=== PATIENT | male | born 1955 | race Caucasian/White ===

== ENCOUNTER → 2017-07-18 | Outpatient (CLI) | payer MEDICARE, MEDICAID ==
[~2017-07-18] MED LIST: CLONAZEPAM1 MG PO; DULCOLAX5 MG PO; LUVOX CR150 MG PO; MIRALAX POWDER255 GM PO; MIRTAZAPINE15 MG PO; MULTIPLE VITAMI1 CAP PO; PRILOSEC20 MG PO; RISPERDAL1 MG; VIT C; VIT E
== END | disposition home or self-care (01) ==
LOC: US 00:26
DX: Z12.5 Encounter for screening for malignant neoplasm of prostate (principal); R22.41 Localized swelling, mass and lump, right lower limb; I73.9 Peripheral vascular disease, unspecified; R73.09 Other abnormal glucose

== ENCOUNTER 2017-08-12 06:42 | Inpatient (IN) | payer MEDICARE, MEDICAID ==
[2017-08-12] VITALS (7 sets, daily range): BP systolic 108–170; BP diastolic 62–108
[~2017-08-12] VITALS: Ht 187.9 cm; Wt 76.2 kg
[2017-08-12 07:46] LABS: BASO % 0.2 % (0.0-1.0); EOS % 0.1 % (1.0-4.0); HEMATOCRIT 41.6 % (42.0-52.0); HEMOGLOBIN 13.6 g/dl (14.0-18.0); LYMPH # 0.9 10*3/uL (1.3-4.4); LYMPH % 7.8 % (27.0-41.0); MEAN CELL VOLUME 86.8 fl (80.0-94.0); MEAN CORPUSCULAR HGB 28.4 pg (27.0-31.0); MEAN CORPUSCULAR HGB CONC 32.7 g/dl (33.0-37.0); MEAN PLATELET VOLUME 10.5 fl (9.6-12.3); MONO # 0.3 10*3/uL (0.1-1.0); MONO % 2.4 % (3.0-9.0); NEUT # 9.8 10*3/uL (2.3-7.9); NEUT % 89.1 % (47.0-73.0); PLATELET COUNT AUTOMATED 177 10*3/uL (130-400); RED BLOOD COUNT 4.79 10*6/uL (4.50-5.90); RED CELL DISTRI WIDTH 13.2 % (0-14.5)
[2017-08-12 07:55] LABS: ACT PARTIAL THROMBO TIME 21.1 SECONDS (20.8-31.5); INTERNATIONAL NORM RATIO 0.9 (2.0-3.5)
--- NOTE | 2017-08-12 07:56 | NUR ---
PROVIDED PATIENT WITH URINAL AND ENCOURAGED TO PROVIDE URINE SPECIMEN. PATIENT STATES HE'S UNABLE TO URINATE AT THIS TIME.
[2017-08-12 08:03] LABS: ALBUMIN 4.6 gm/dl (3.1-4.5); ALKALINE PHOSPHATASE 66 U/L (45-117); BUN 10 mg/dl (7-24); CHLORIDE 102 mmol/L (98-107); LIPASE 66 U/L (73-393); MAGNESIUM 2.2 mg/dL (1.5-2.1); POTASSIUM 3.6 mmol/L (3.5-5.1); SGOT/AST 13 IU/L (3-35); SGPT/ALT 31 U/L (12-78); SODIUM 140 mmol/L (136-145); TOTAL PROTEIN 7.9 gm/dL (6.4-8.2)
[2017-08-12 08:10] LABS: TROPONIN I < 0.015 ng/ml (<0.045)
[2017-08-12 10:49] LABS: BILIRUBIN NEGATIVE (NEGATIVE); BLOOD NEGATIVE (NEGATIVE); CLARITY CLEAR (CLEAR); COLOR YELLOW (YELLOW); GLUCOSE NEGATIVE (NEGATIVE); KETONE 1+ (NEGATIVE); LEUKO ESTERASE NEGATIVE (NEGATIVE); NITRITE NEGATIVE (NEGATIVE); UROBILINOGEN 0.2 E.U./dl (0.2-1.0)
[2017-08-12] MEDS ORDERED: SILDENAFIL20 M1 PO (11:10)
[2017-08-12] MEDS ORDERED: ARIPIPRAZOLE30 MG PO (11:10)
[2017-08-12] MEDS ORDERED: HYDROXYZINE PAM25 M1 PO (11:10)
[2017-08-12] MEDS ORDERED: PANTOPRAZOLE SO40 MG PO (11:11)
[2017-08-12] MEDS ORDERED: OXYBUTYNIN CHLOR5 MG PO (11:11)
[2017-08-12] MEDS ORDERED: MIRTAZAPINE45 MG PO (11:12)
[2017-08-12] MEDS ORDERED: VITAMIN D400 I1 PO (11:13)
[2017-08-12] MEDS ORDERED: CLONAZEPAM1 MG PO (11:14)
[2017-08-12 11:17] LABS: MUCOUS 1+; WBC 0-2 wbc/hpf (0-5)
--- NOTE | 2017-08-12 11:42 | NUR ---
NG TUBE INSERTED RIGHT NARE. PT TOLERATED WELL. RETURN OF YELLOW-GREEN COLOR FLUID. INTERMITTENT SUCTION
--- NOTE | 2017-08-12 11:54 | NUR ---
REPORT CALLED TO RODRIGUEZ SALCIDO ON THE 5TH FLOOR. CONDITION STABLE. READY FOR TRANSPORT.
--- NOTE | 2017-08-12 12:24 | NUR ---
TRANSPORTED TO [facility] BED 2. CONDITION STABLE.
--- NOTE | 2017-08-12 14:58 | NUR ---
A 62, admitted to 5E, under the services of CANDICE Edmonds DO with a diagnosis of Small Bowel Obstruction. Chief complaint is Abdominal Pain with Nausea and Vomitting. Patient arrived via stretcher from ER. Monitor applied. Initial assessment completed. Vital signs taken and recorded. CANDICE EDMONDS DO notified of admission to the unit. Orders received. See assessment for past medical history, medications and allergies. Patient and/or family oriented to unit. [facility] 5-E visitation policy reviewed. Medication Reconciliation was reviewed with pharmacy. Clothing/patient valuable form completed. RODRIGUEZ WHEELER
--- NOTE | 2017-08-12 15:18 | NUR ---
ZOFRAN GIVEN PER REQUEST OF PATIENT FOR N/V. WILL MONITOR.
--- NOTE | 2017-08-12 16:00 | NUR ---
ZOFRAN EFFECTIVE. PATIENT HAS NO MORE C/O N/V. SUCTION PLACED ON INTERMITTENT SUCTION.
--- NOTE | 2017-08-12 16:00 | NUR ---
PER DR. ROSENBAUM, NG TUBE IS TO BE PLACED ON INTERMITTENT SUCTION.
--- NOTE | 2017-08-12 18:53 | NUR ---
PRN ATIVAN GIVEN PER PATIENT REQUEST FOR ANXIETY. WILL MONITOR.
[2017-08-13] VITALS: BP 107/73
--- NOTE | 2017-08-13 | NUR ---
awake, resting in bed. respirations easy. lungs diminished, clear. pulse ox 96% ra. ng tube maintained to right nare, connected to lis draining thick yellow mustard colored drainage. abd soft with hypoactive bowel sounds, claims loose stools. iv fluids infusing per order. hernandez patent. call light within reach. no voiced complaints
--- NOTE | 2017-08-13 02:15 | NUR ---
anxious. questioning when po meds will be given. explained to patient that he has a bowel obstruction and is npo. patient adament that he needs his psych meds. explained to patient that he can receive iv ativan , agreed and medicated per order. will monitor
--- NOTE | 2017-08-13 04:00 | NUR ---
meds effective. sleeping. respirations easy. ng maintained. iv fluids maintained
--- NOTE | 2017-08-13 06:00 | NUR ---
slept throughout night with no distress noted. respirations easy. ng tube maintained with 50 cc drainage this shift. iv fluids infusing per order. call light within reach. no voiced complaints
[2017-08-13 06:23] LABS: BASO % 0.3 % (0.0-1.0); EOS # 0.1 10*3/uL (0.0-0.4); EOS % 0.7 % (1.0-4.0); LYMPH # 1.8 10*3/uL (1.3-4.4); LYMPH % 25.1 % (27.0-41.0); MEAN CELL VOLUME 87.4 fl (80.0-94.0); MEAN CORPUSCULAR HGB 28.8 pg (27.0-31.0); MEAN CORPUSCULAR HGB CONC 32.9 g/dl (33.0-37.0); MEAN PLATELET VOLUME 9.9 fl (9.6-12.3); MONO # 0.5 10*3/uL (0.1-1.0); MONO % 6.8 % (3.0-9.0); NEUT # 4.9 10*3/uL (2.3-7.9); NEUT % 66.7 % (47.0-73.0); PLATELET COUNT AUTOMATED 145 10*3/uL (130-400); RED BLOOD COUNT 3.89 10*6/uL (4.50-5.90); RED CELL DISTRI WIDTH 13.4 % (0-14.5); WHITE BLOOD COUNT 7.3 10*3/uL (4.8-10.8)
[2017-08-13 06:25] LABS: HEMOGLOBIN 11.2 g/dl (14.0-18.0)
[2017-08-13 06:51] LABS: ALBUMIN 3.1 gm/dl (3.1-4.5); ALKALINE PHOSPHATASE 46 U/L (45-117); BUN 9 mg/dl (7-24); CHLORIDE 109 mmol/L (98-107); CHOLESTEROL 116 mg/dL (<200); CREATININE 0.98 mg/dL (0.70-1.30); FREE T4 0.84 ng/dl (0.76-1.46); HDL CHOLESTEROL 49 mg/dl (40-60); LDL CHOLESTEROL 54 mg/dL (9-159); MAGNESIUM 1.7 mg/dL (1.5-2.1); PHOSPHOROUS 2.2 mg/dL (2.5-4.9); POTASSIUM 3.3 mmol/L (3.5-5.1); SGOT/AST 10 IU/L (3-35); SGPT/ALT 19 U/L (12-78); SODIUM 144 mmol/L (136-145); TOTAL PROTEIN 5.4 gm/dL (6.4-8.2); TRIGLYCERIDES 64 mg/dl (<150); VLDL CHOLESTEROL 13 mg/dL (6-40)
[2017-08-13 07:12] LABS: VITAMIN D, 25-HYDROXY 40.7 ng/mL (30-100)
[2017-08-13 08:00] VITALS: BP 108/65
--- NOTE | 2017-08-13 08:15 | NUR ---
Vasc Tech in to talk to patient. Patient states lives at HOME ALONE with . There are 0 steps in the home. Physician: DR LOPEZ Pharmacy: [facility] health services: NONE Patient's level of ADLs: INDEPENDENT Patient has working utilities: YES DME: NONE Follow-up physician's appointment after d/c: WILL BE MADE PRIOR TO DC Does patient want to access PORTAL?: Discharge plan HOME. JOSE LAWRENCE
--- NOTE | 2017-08-13 10:35 | NUR ---
ATIVAN GIVEN FOR C/O ANXIETY. WILL MONITOR.
[2017-08-13 12:00] VITALS: BP 109/73; BP 126/47
[2017-08-13 16:00] VITALS: BP 145/90
--- NOTE | 2017-08-13 17:25 | NUR ---
KLONOPIN GIVEN FOR C/O ANXIETY. WILL MONITOR.
--- NOTE | 2017-08-13 18:30 | NUR ---
KLONOPIN EFFECTIVE PER PT.
[2017-08-13 20:00] VITALS: BP 109/68
[2017-08-14] VITALS: BP 112/73
--- NOTE | 2017-08-14 01:56 | NUR ---
RESTING IN BED WITH EYES CLOSED RESPS EASY AND NONLABORED WITH NO S/S OF DISTRESS CALL LIGHT WITH IN REACH
[2017-08-14 06:31] LABS: ALBUMIN 3.1 gm/dl (3.1-4.5); ALKALINE PHOSPHATASE 50 U/L (45-117); BUN 7 mg/dl (7-24); CHLORIDE 109 mmol/L (98-107); CREATININE 0.92 mg/dL (0.70-1.30); PHOSPHOROUS 2.5 mg/dL (2.5-4.9); POTASSIUM 3.3 mmol/L (3.5-5.1); SGOT/AST 14 IU/L (3-35); SGPT/ALT 21 U/L (12-78); SODIUM 144 mmol/L (136-145); TOTAL PROTEIN 5.7 gm/dL (6.4-8.2)
[2017-08-14 06:37] LABS: BASO % 0.3 % (0.0-1.0); EOS # 0.1 10*3/uL (0.0-0.4); EOS % 1.3 % (1.0-4.0); HEMATOCRIT 34.3 % (42.0-52.0); HEMOGLOBIN 11.1 g/dl (14.0-18.0); LYMPH # 1.8 10*3/uL (1.3-4.4); LYMPH % 28.9 % (27.0-41.0); MEAN CELL VOLUME 89.3 fl (80.0-94.0); MEAN CORPUSCULAR HGB 28.9 pg (27.0-31.0); MEAN CORPUSCULAR HGB CONC 32.4 g/dl (33.0-37.0); MEAN PLATELET VOLUME 10.4 fl (9.6-12.3); MONO # 0.5 10*3/uL (0.1-1.0); MONO % 7.1 % (3.0-9.0); NEUT % 62.2 % (47.0-73.0); PLATELET COUNT AUTOMATED 135 10*3/uL (130-400); RED BLOOD COUNT 3.84 10*6/uL (4.50-5.90); RED CELL DISTRI WIDTH 13.2 % (0-14.5); WHITE BLOOD COUNT 6.4 10*3/uL (4.8-10.8)
[2017-08-14 08:00] VITALS: BP 108/71
--- NOTE | 2017-08-14 08:00 | NUR ---
PT RESTING IN BED, PT DENIES ANY COMPLAINTS AT THIS TIME. RESPIRATIONS EASY & REGULAR, PT DENIES SOB. ABDOMEN SOFT/NON-DISTENDED, HYPO BSX4 QUADS, PT DENIES ANY ABDOMINAL PAIN, NAUSEA, OR TENDERNESS. PIPER PATENT. IVF INFUSING PER ORDER. PT DENIES NEEDS AT THIS TIME. CALL LIGHT WITHIN REACH.
--- NOTE | 2017-08-14 08:42 | NUR ---
PT REQUESTING HIS LUVOX CR, SPOKE WITH PHARMACY, THEY STATE WE DON'T CARRY THE CR FORM, STATE THEY COULD ORDER LUVOX 50MG TID. UPDATED GAURANG PADGETT.
--- NOTE | 2017-08-14 09:49 | NUR ---
PIPER CATHETER D/C PER ORDER AT THIS TIME. MEDICATED WITH VISTARIL PER PT REQUEST FOR ANXIETY. MEDICATION EDUCATION PROVIDED TO PT REGARDING PROPER DOSING AND SCHEDULE FOR VISTARIL. PT STATES IT IS NEEDED, REINSTRUCTED THAT YES IT IS AN NEEDED MEDICATION, BUT IT IS 25MG EVERY 6 HOURS NEEDED, NOT TO TAKE HE WISHES.
--- NOTE | 2017-08-14 10:30 | NUR ---
PT STATES HE TOLERATED HIS REGULAR DIET BREAKFAST, DENIES AND N/V AND ABD DISCOMFORT.
[2017-08-14 12:00] VITALS: BP 113/64
--- NOTE | 2017-08-14 14:56 | NUR ---
Discharge instructions reviewed with patient/family. Patient receptive and verbalizes understanding. Follow-up care arranged. Written instructions given to patient/family. IV site and telemtry monitor removed. Pt trsnported to lobby via wheelchair. PASQUALE BATES
== END 2017-08-14 14:56 | disposition home or self-care (01) | DRG 389 ==
LOC: ED 06:42 → 5E 10:48 → EDHOLD 10:48 → 5E 10:54
PROVIDERS: Emergency Medicine; Registered Nurse; ADMIT Internal Medicine
PROC: 0D9670Z Drainage of Stomach with Drainage Device, Via Natural or Artificial Opening (ICD-10-PCS; principal; 2017-08-12)
DX: K56.609 Unspecified intestinal obstruction, unspecified as to partial versus complete obstruction (principal); R65.10 Systemic inflammatory response syndrome (SIRS) of non-infectious origin without acute organ dysfunction; E44.0 Moderate protein-calorie malnutrition; E87.8 Other disorders of electrolyte and fluid balance, not elsewhere classified; E88.09 Other disorders of plasma-protein metabolism, not elsewhere classified; F20.9 Schizophrenia, unspecified; K56.7 Ileus, unspecified; R74.8 Abnormal levels of other serum enzymes; F32.9 Major depressive disorder, single episode, unspecified; E55.9 Vitamin D deficiency, unspecified; E87.6 Hypokalemia; Z90.49 Acquired absence of other specified parts of digestive tract; Z79.899 Other long term (current) drug therapy; Z88.6 Allergy status to analgesic agent; Z91.040 Latex allergy status; Z68.21 Body mass index [BMI] 21.0-21.9, adult

== ENCOUNTER 2019-08-08 01:54 | Inpatient (IN) | payer MEDICARE, MEDICAID ==
[~2019-08-08] VITALS: Ht 187.9 cm; Wt 71.4 kg
--- NOTE | ~2019-08-08 | PR ---
[place], [place] PROGRESS NOTE NAME: [id number] UN[facility] #: [id number] ROOM: 317 DOCTOR: JOSE LANGE MD BIRTHDATE: [birth year] DOS: 08/17/2019 CHIEF COMPLAINT: "I am a complicated case. I am a chronic paranoid, schiz with OCD. I have done well with Remeron 45 mg at bedtime before." SUMMARY OF THE VISIT: The patient was interviewed and he continued to focus on needing his Remeron back. He stated that he has always taken the Remeron 45 mg worked the best and he has taken it well on the Luvox CR. He reports his anxiety is under much better control with the addition of the Klonopin, but his depression is still there and perhaps worsening. We talked at length about the pros and cons of reinitiating Remeron therapy and he nodded in approval that he wanted to go forward with it. I did tell him we would start him at 22.5 mg at bedtime and adjust accordingly and again he agreed. MENTAL STATUS: He is alert and oriented. Mood does seem to be depressed. He is rather flat and blunted in matter of fact. There are no outward signs of anxiety. There is no hypomania or jenae. There are no gross psychotic symptoms. Memory for the most part is intact. PLAN: I will go ahead and restart Remeron 22.5 mg at bedtime. We will engage in individual and gamino milieu activity, returning to the least restrictive environment when psychiatrically stable. JOSE LANGE MD CM:PNTRANS [id number] JOSE LANGE MD 08/17/19 1330 interface
--- NOTE | ~2019-08-08 | PR ---
[place], [place] PROGRESS NOTE NAME: LIZETTE CARMICHAEL UNIT #: [id number] ROOM: 317 DOCTOR: JOSE LANGE MD BIRTHDATE: [birth year] DOS: 08/12/2019 INTERVAL NOTE CHIEF COMPLAINT: "I am just worried where I will follow when I get out of here. I have not felt this good in a long time." SUMMARY OF THE VISIT: The patient was interviewed as he was sitting at the end of the dining area. He engaged readily in conversation, reporting that he has not felt this good in some time. He was concerned where he would follow up, as he is afraid that wherever he would follow will change his medicines and states that this current regimen is working well. I did suggest as an option that he could followup in my office in [place] and he nodded in approval. MENTAL STATUS: He is alert and oriented. Mood does seem to be more euthymic. Affect is more appropriate. There is no jenae, hypomania, or psychosis. There is no sedation, somnolence, or extrapyramidal symptoms. Memory for the most part is intact. PLAN: I will go ahead and check a clonazepam level on 08/14/2019 in the a.m. to ensure that it is therapeutic. Continue to engage in individual and gamino milieu activity, returning to the least restrictive environment when psychiatrically stable. JOSE LANGE MD CM:PNTRANS [id number] JOSE LANGE MD 08/13/19 0115 interface
--- NOTE | ~2019-08-08 | PR ---
[place], [place] PROGRESS NOTE NAME[id number] #: [id number] ROOM: 317 DOCTOR: RON GARCIA CNP BIRTHDATE: [birth year] DOS: 08/09/2019 CHIEF COMPLAINT: "I am worried that Klonopin will cause me to have Alzheimer's." SUMMARY OF THE VISIT: The patient was interviewed as he sat in the dining room. He did engage readily in conversation with me. The patient continues to report that he is having hallucinations, colors appear prayed and he sees Js, Cs and crosses. He denies any auditory hallucinations. He reports that he feels as if he could have a panic attack. Vistaril 50 mg has worked for anxiety in the past. He reports that he was also taking Klonopin 2 mg and it was effective at one time. Staff reports that the patient only slept 2-1/2 hours last night, seems to be perseverating on his medications; however, he has been compliant with taking meds. His appetite has been good. MENTAL STATUS EXAMINATION: The patient is alert and oriented to person, place and time. He was pleasant and cooperative with me. No jenae or hypomania noted. No delusions noted; however, there is some paranoia noted this morning. No auditory or visual hallucinations noted at this time. The patient's mood is anxious. His affect is congruent with mood. PLAN: The patient's TSH is elevated. We will have the hospitalist follow up with this. We will increase the patient's Zyprexa to 10 mg daily to help alleviate the hallucinations, also start the patient on Vistaril 50 mg every 8 hours for anxiety, continue patient's other medications as prescribed. He appears to be tolerating them without any side effects. Continue to encourage the patient to engage in individual and gamino milieu activity. Continue fall and safety precautions. Plan is to return the patient to the least restrictive environment once he is considered psychiatrically stable. Ron Garcia CNP CM:PNTRANS [id number] RON GARCIA CNP 09/07/19 0845 interface
--- NOTE | ~2019-08-08 | PR ---
[place], [place] PROGRESS NOTE NAME: LIZETTE CARMICHAEL UNIT #: [id number] ROOM: 317 DOCTOR: JOSE LANGE MD BIRTHDATE: [birth year] DOS: 08/19/2019 INTERVAL NOTE CHIEF COMPLAINT: "I feel better, will you be able to be my doctor when I get out of here." SUMMARY OF THE VISIT: The patient was interviewed as he was sitting in the dining area. He reported that overall he is feeling better and that the depression and anxiety are both lifting and he feels that the obsessive thoughts also are lifting. We discussed at length the reason for increasing his Luvox CR to 3 a day and he nodded in approval. He also convincingly denied any medication side effects. MENTAL STATUS: He remains alert and oriented with time gaps. Mood does seem to be strongly trending towards euthymia. Affect is much more appropriate. There is no jenae, hypomania, or psychosis. Memory has some gaps. PLAN: I will maintain his current psychotropic regimen to allow him more time to adjust. I will, however, check a hemoglobin A1c and a lipid panel given his higher dose of olanzapine. We will monitor and support and engage in individual and gamino milieu, returning then to the least restrictive environment when psychiatrically stable. JOSE LANGE MD CM:PNTRANS [phone] JOSE LANGE MD 08/20/19 0023 interface
--- NOTE | ~2019-08-08 | PR ---
[place], [place] PROGRESS NOTE NAME: LIZETTE CARMICHAEL UNIT #: [id number] ROOM: 317 DOCTOR: JOSE LANGE MD BIRTHDATE: [birth year] DOS: 08/13/2019 INTERVAL NOTE CHIEF COMPLAINT: "I think I need something more for my depression." SUMMARY OF THE VISIT: The patient was interviewed first in the back of the dining room, where he reported that his anxiety level is under control. He did request that I start him on some Remeron, but I discussed with him that this may not be advisable as mixing the Remeron with the Luvox could have the potential of causing serotonin syndrome. Instead, I offered to check a Luvox level in the morning to see if we need to adjust it. Later, he asked to talk to me in private, at which time, he discussed how on April 30 of this past year, his anxiety increased when he frequented a pornographic theater. I did discuss with him the possibility of seeing his counselor more frequently to deal with some of the aftermath of this incident and he agreed to see the counselor weekly. MENTAL STATUS: He is alert and oriented. Mood does seem to be more euthymic and he is less anxious. There is less obsessiveness, but it is still present. He is tolerating the medication well without sedation, somnolence, extrapyramidal symptoms, or tardive dyskinesia. PLAN: Along with checking a clonazepam level in the a.m. tomorrow, I will add a fluvoxamine level too to ensure that both are therapeutic. Engage in individual and gamino milieu activity, returning to the least restrictive environment when psychiatrically stable. JOSE LANGE MD CM:PNTRANS [phone] JOSE LANGE MD 08/13/192105 interface
--- NOTE | ~2019-08-08 | PR ---
[place], [place] PROGRESS NOTE NAME: LIZETTE CARMICHAEL UNIT #: [id number] ROOM: 317 DOCTOR: JOSE LANGE MD BIRTHDATE: [birth year] DOS: 08/10/2019 CHIEF COMPLAINT: "My anxiety triggers my depression and my depression triggers the voices. It is all a vicious cycle." SUMMARY OF THE VISIT: The patient was interviewed as he was sitting at the edge of the dining area, eating his breakfast. He engaged readily in conversation. He reports that in the past, Klonopin was effective, but it gradually lost effectiveness over time. He feels that the Luvox is effective and did not want that dose changed. He also feels like the Zyprexa has helped some, but is open to allowing me to adjust medication. MENTAL STATUS: He is alert and oriented. Mood does seem to be depressed with anxious overtones and there is of OCD as he reiterates things over and over, trying to pinpoint the exact wording that he wants. There is no hypomania or jenae. There is still the presence of some psychosis. Memory is intact. PLAN: I will increase his Zyprexa to 5 mg in the morning and 10 mg at night. We will also increasing the Klonopin to 1 mg twice a day and 2 mg at bedtime in an effort to control the psychosis, anxiety, the depression and the OCD. JOSE LANGE MD CM:PNTRANS 4 1 JOSE LANGE MD 08/10/1952 interface
--- NOTE | ~2019-08-08 | DS ---
[place], [place] DISCHARGE SUMMARY NAME: LIZETTE CARMICHAEL [facility] #: [id number] UNIT #: [id number] ROOM: 317 DOCTOR: JOSE LANGE MD BIRTHDATE: [birth year] DOS: 08/24/2019 DISCHARGE SUMMARY CHIEF COMPLAINT: "I was at the crisis unit and I told them I was seeing all these bright colors, but they discharged me in anyway." HISTORY OF PRESENT ILLNESS: This is a 64-year-old white male with a lengthy history of paranoid schizophrenia as well as anxiety, OCD and depression. The patient presented to the Emergency Room at [facility], having a panic attack. He received Ativan and it was effective; however, a few hours later, he began to feel anxious and suicidal and reported that he wanted to jump off a bridge. He reports that the suicidal ideations happen whenever he becomes anxious and he is fearful that will trigger psychosis and he will decompensate greatly. The patient has endorsed that he has had sleep issues as well as appetite issues and he tends to ruminate on things to the point where he will work himself up into a suicidal crisis. He is admitted now to the [facility] to rule out organic factors, to stabilize on medication, to engage in individual and gamino milieu activity, and then to determine the least restrictive environment to which he could return. SUMMARY OF HOSPITAL COURSE: The patient was admitted to the unit where his psychotropic regimen was continued for the most part except his Abilify was discontinued. During the course of his stay, a Fluvoxamine level was obtained and it was therapeutic, but very lowly so, despite being on 150 mg of the Luvox CR twice daily. Because of the low therapeutic level, his dose was increased to Luvox CR 150 mg t.i.d. with good results. Additionally, the patient stated that in the past, he always took Remeron at the dose of 45 mg a day to augment the effectiveness of the antidepressant regimen. I did already discontinue his Paxil, so I did restart him back on the Remeron and very rapidly moved him from 15 to 30 and then ultimately 45 mg a day. I did add Klonopin 2 mg at bedtime in an effort to aid sleep and also decrease some of the obsessive compulsive ruminations that he engaged in. He improved dramatically with this combination of medications and voiced a willingness and a readiness to return home. He did request that he followup in my office as he states that he feels that this combination of medications has him feeling the best that he has for some time. The patient was discharged then on 08/24/2019 to return home. MENTAL STATUS AT DISCHARGE: He is alert and oriented to person, place and time. Mood does seem to be euthymic. Affect appropriate. There is no jenae, hypomania or gross psychosis noted. Short term memory, intermediate memory and long-term memory are intact. FINAL DIAGNOSES AT THE TIME OF DISCHARGE: Schizoaffective disorder, obsessive compulsive disorder. DISPOSITION: All of his prescriptions have been e-scribed to [facility] except for Luvox CR and the Klonopin. These were printed, signed, and sent with him. He will have followup with Clarita Soto in my office in [place]. At the time of discharge, he was medically and psychiatrically stable. [place], [place] DISCHARGE SUMMARY [facility]: [id number] #: [id number] ROOM: [facility] DOCTOR: JOSE LANGE MD BIRTHDATE: [birth year] JOSE LANGE MD CM:RAMON [id number] JOSE LANGE MD 08/24/19 1825 interface
--- NOTE | ~2019-08-08 | PR ---
[place], [place] PROGRESS NOTE NAME: LIZETTE CARMICHAEL UNIT #: [id number] ROOM: 317 DOCTOR: JOSE LANGE MD BIRTHDATE: [birth year] DOS: 08/11/2019 INTERVAL NOTE CHIEF COMPLAINT: "I feel a little better, I guess I do need the Klonopin." SUMMARY OF THE VISIT: The patient was interviewed as he was sitting at the dining table with other peers. He was much more conversant and pleasant than he was yesterday, much less perseverative. He also seemed much less anxious. He focused on using the Klonopin and wanted some reassurance that this was the right thing to do. I discussed at length what the Klonopin can do pharmacologically in curbing his anxiety, OCD and stabilizing his mood and he nodded in approval. He noted no side effects from the increase in the Klonopin. MENTAL STATUS: He is alert and oriented to person, place and time. Mood does seem to be more euthymic. Affect is more appropriate. There is no jenae, hypomania or psychosis noted. Memory is fairly intact. PLAN: I will go ahead and increase his hydroxyzine to 50 mg q.i.d. in an effort to augment the Klonopin. We will engage in individual and gamino milieu activity, returning to the least restrictive environment when psychiatrically stable. JOSE LANGE MD CM:PNTRANS [id number] JOSE LANGE MD 08/11/19 1132 interface
--- NOTE | ~2019-08-08 | PR ---
[place], [place] PROGRESS NOTE NAME: LIZETTE CARMICHAEL UNIT #: [id number] ROOM: 317 DOCTOR: JOSE LANGE MD BIRTHDATE: [birth year] DOS: 08/18/2019 CHIEF COMPLAINT: "I guess I have to be on the Klonopin. That Remeron seems to help, but I usually need more." SUMMARY OF THE VISIT: The patient was interviewed as he was once again sitting in the dining room, waiting for breakfast. He engaged readily in conversation and did report that he was feeling slightly better now that the Remeron was restarted. He still does tend to ruminate a lot. I did finally receive back the fluvoxamine and clonazepam levels. Clonazepam is just mildly therapeutic at 21 with the range being 20-70. Of note, the fluvoxamine level is relatively low at 95 with the range for most individuals being 50-900. My sense is he is either not absorbing the Luvox CR or he is rapidly metabolizing it. Doing a GeneSight test later when he returns back into the community would be worthwhile at this point. MENTAL STATUS: He is alert and oriented. Mood does seem to be still depressed, but improving. He is still ruminative and repetitive, but he redirects more readily. There is no hypomania, jenae or psychosis. Short term, intermediate, and long-term memory are intact. PLAN: I will go ahead and increase his Remeron to 30 mg at bedtime with a target dose of 45. I will contact the pharmacy and see if we can safely increase his Luvox CR to 150 mg 3 times a day given the fact that his fluvoxamine level is relatively low at 95. I will maintain his Klonopin at its current dosing, although we do have room to adjust this as needed, but we will keep it at the current dose given benefits without side effects. We will engage in individual and gamino milieu activity with the ultimate plan to return to the least restrictive environment when psychiatrically stable. JOSE LANGE MD CM:PNTRANS 9 26 JOSE LANGE MD 08/18/192025 interface
--- NOTE | ~2019-08-08 | PR ---
[place], [place] PROGRESS NOTE NAME: LIZETTE CARMICHAEL UNIT #: [id number] ROOM: 317 DOCTOR: JOSE LANGE MD BIRTHDATE: [birth year] DOS: 08/20/2019 INTERVAL NOTE CHIEF COMPLAINT: "I am having some disturbing deeply orthodox thoughts, but I am okay." SUMMARY OF THE VISIT: The patient was interviewed in the dining room where he reported to me that he was having disturbing orthodox thoughts and has become more religiously preoccupied. Additionally, nurses report that he is becoming more sexually preoccupied and has been masturbating in his room more frequently. MENTAL STATUS: He is alert and oriented with some time gaps. Mood does seem to be depressed, despondent and preoccupied. There are no symptoms of hypomania. He is delusional. Memory has gaps. PLAN: I will increase his Remeron to 45 mg at bedtime. Per his request as he states that this does work the best for him given his preoccupation and his behaviors, I will increase his Zyprexa from 5 mg in the morning and 15 mg at night to stabilize his mood and decrease his preoccupation. We will engage in individual and gamino milieu activity, returning to the least restrictive environment when psychiatrically stable. JOSE LANGE MD CM:PNTRANS [phone] [id number] JOSE LANGE MD 08/20/192119 interface
--- NOTE | ~2019-08-08 | PR ---
[place], [place] PROGRESS NOTE NAME: LIZETTE CARMICHAEL UNIT #: [id number] ROOM: 317 DOCTOR: JOSE LANGE MD BIRTHDATE: [birth year] DOS: 08/21/2019 CHIEF COMPLAINT: "Doctor, can I have some Viagra." SUMMARY OF THE VISIT: The patient was interviewed in the dining area where he requested I start him on Viagra. I told him that this was inappropriate for psych unit and he did not need this at this time. He asked if it was okay if his family doctor prescribed it. I said yes that would be appropriate if his family doctor thought that the side effects were not significantly impact upon him, but that it does have some significant side effects that warrant medical supervision. Otherwise, the patient does report feeling better and outwardly he does seem to be less depressed and less anxious. On a negative note, however, staff has noted that he has now gone from masturbating in his bathroom or bedroom to at times in public places. We will continue to monitor this and redirect and support and monitor. MENTAL STATUS: He is alert and oriented. Mood does seem to be trending towards euthymia. Affect is much more appropriate. There is no jenae or hypomania. There is no gross psychosis. PLAN: I will add Rozerem p.r.n. for sleep and also check an ammonia level. We will engage in individual and gamino milieu activity, returning to the least restrictive environment when psychiatrically stable. JOSE LANGE MD CM:PNTRANS 0 50 JOSE LANGE MD 08/21/19 1950 interface
--- NOTE | ~2019-08-08 | WRIGHTHP ---
[place], [place] PATIENT HISTORY AND PHYSICAL EXAM NAME: LIZETTE CARMICHAEL [facility] #: [id number] UNIT #: [id number] ROOM: 317 DOCTOR: RON GARCIA CNP BIRTHDATE: [birth year] DOS: 08/08/2019 INITIAL PSYCHIATRIC EVALUATION CHIEF COMPLAINT: "I was at the Crisis Unit and I told them I was seeing all these bright colors, but they discharged me anyway." HISTORY OF PRESENT ILLNESS: This is a 64-year-old male with a history of anxiety and paranoid schizophrenia who presented to the Emergency Department yesterday having a panic attack. The patient received Ativan in the Emergency Room and it was effective. However, a few hours later, he began to feel anxious and suicidal. The patient reported that he wanted to jump off the bridge. He reports that he has suicidal ideations whenever he becomes very anxious and has panic attacks. The patient reports that the bright lights continue to make the visual hallucinations worse. He does report that he has ringing in his ears; however, he is unable to hear any specific voices. He also reports that he is able to see a J and a cross. The patient was admitted to the Behavioral Health Unit here at [facility]. Once he was considered medically stable in order, we will now continue to rule out any further organic factors and attempt to re-stabilize him on medication. He will be encouraged to engage in individual and gamino milieu activity and the plan is to return him to the least restrictive environment once he is considered psychiatrically stable. PAST MEDICAL HISTORY: Remarkable for depression, elevated lipase, hyperalbuminemia, hyperchloremia, hypermagnesemia, hypocalcemia, hypokalemia, hypophosphatemia, leukocytosis, moderate protein-calorie malnutrition, paranoid schizophrenia, systemic inflammatory response syndrome, small-bowel obstruction, vitamin D deficiency. He had a history of cholecystectomy and has had a history of a PEG tube placement, also has a history of anxiety. SOCIAL HISTORY: The patient denies any alcohol, tobacco or illicit drug use. STRENGTHS: He is ambulatory and has good verbal skills. WEAKNESSES: Long-term Behavioral Health and poor coping skills. MENTAL STATUS: The patient is alert and oriented to person, place and time. He was pleasant and cooperative with me. No jenae or hypomania noted. No delusions or paranoia noted at this time. No auditory or visual hallucinations noted at this time. The patient's mood was calm. His affect congruent with mood. No agitation, irritability or aggression noted at this time. The patient's judgment and insight are fair. His memory appears to be intact for the most part. The patient does deny any current suicidal or homicidal ideations. DIAGNOSES: Major depression, recurrent, severe and paranoid schizophrenia. PLAN: The patient's TSH is elevated. We will have the hospitalist follow up with this. We will start the patient on Zyprexa 5 mg daily to combat auditory and visual hallucinations. We will start the patient on Klonopin 0.5 mg twice a [place], [place] PATIENT HISTORY AND PHYSICAL EXAM NAME: LIZETTE CARMICHAEL UNIT #: [id number] ROOM: [facility] DOCTOR: RON GARCIA CNP BIRTHDATE: [birth year] day to combat anxiety. Continue the patient's Luvox 150 mg b.i.d. We will continue to encourage the patient to engage in individual and gamino milieu activity. Continue fall and safety precautions. Plan is to return the patient to the least restrictive environment once he is considered psychiatrically stable. Ron Garcia CNP CM:HISPHYS:PATIENT HISTORY AND PHYSICAL EXAMINATION [id number] RON GARCIA CNP 08/08/19 1104 interface
--- NOTE | ~2019-08-08 | PR ---
[place], [place] PROGRESS NOTE NAME: LIZETTE CARMICHAEL UNIT #: [id number] ROOM: 317 DOCTOR: JOSE LANGE MD BIRTHDATE: [birth year] DOS: 08/14/2019 CHIEF COMPLAINT: "I feel overmedicated, yet I am afraid to have a panic attack. I haven't had a panic attack in 3 days now." SUMMARY OF THE VISIT: The patient was interviewed as he was sitting at the edge of the dining area, having eaten his breakfast. He reported that he was feeling overmedicated, but he could not put into words what he felt. He denied sedation, somnolence, dizziness or any other side effects, just stating he feels somewhat overmedicated. He does feel that the current medicine regimen is helpful and that his overall anxiety level is less and he has not had a panic attack now for 3 days. Sleep and appetite are normalizing. MENTAL STATUS: He is alert and oriented. Mood does still seem to be somewhat depressed with anxious overtones. There is no jenae or hypomania and I do not see the presence of psychosis. Memory for the most part is intact. PLAN: I will discontinue the hydroxyzine altogether as the Klonopin is the more important of the agent as it will help with anxiety, OCD and mood stabilization. Both a Luvox and a Klonopin level were drawn and I am awaiting results to determine if any adjustment in his medication is needed. Meanwhile, we will engage in individual and gamino milieu activity, returning to the least restrictive environment when psychiatrically stable. JOSE LANGE MD CM:PNTRANS [id number] JOSE LANGE MD 08/14/19 1449 interface
[~2019-08-08 01:54] MED LIST changes: +ARIPIPRAZOLE30 MG PO; +HYDROXYZINE PAM25 M1 PO; +MIRTAZAPINE45 MG PO; +MULTIPLE VITAM1 EAC2 PO; -MULTIPLE VITAMI1 CAP PO; +OXYBUTYNIN5 MG PO; +PANTOPRAZOLE SO40 MG PO; +SILDENAFIL20 M1 PO; +VITAMIN D400 I1 PO
[2019-08-08] MEDS ORDERED: FLUVOXAMINE MA150 M1 PO (04:27)
[2019-08-08] MEDS ORDERED: ZYPREXA15 M1 PO (04:27)
[2019-08-08] MEDS ORDERED: PAXIL20 M1 PO (04:28)
[2019-08-08] MEDS ORDERED: PROPRANOLOL HCL10 MG PO (04:30)
--- NOTE | 2019-08-08 04:45 | NUR ---
LIZETTE CARMICHAEL a 64 year old M admitted via wheel chair from the ADMITTING as a emergency 72 hr. hold admission. Arrived on unit at 0445. ALLERGIES: RISPERDAL. Vital signs are: 98.3-72-20 102/68. The client signed the following forms with stated understanding: Authorization For The Release of Medical Information, Clothing List , Consent and Release Forms/Receipt of Rights, Acknowledgement of Advance Directive Information, Behavioral Health Consent Form, and Informed Consent of Medications. Admitted under the services of JOSE Crespo MD. A search was conducted and hazardous articles were removed. Client was oriented to the unit. PATIENT DID NOT SIGN VOLUNTARY ADMISSION AND HOSPITALIZATION. PATIENT WITH NO WOUNDS ON ADMISSION. PATIENT CAME IN EMERGENCY BROUGHT FROM HOME AFTER LEAVING [facility] CRISIS [facility]IT RAEANN CROSS
--- NOTE | 2019-08-08 04:47 | NUR ---
DR ROSENBAUM NOTIFIED ABOUT ADMISSION. PATIENT UNDER DR URENA FOR MEDICAL MANAGEMENT
--- NOTE | 2019-08-08 04:49 | NUR ---
MESSAGE LEFT FOR AIDEE EPPERSON REGARDING ADMISSION
[2019-08-08 05:00] VITALS: BP 102/68
--- NOTE | 2019-08-08 05:00 | NUR ---
DR ROSENBAUM ON UNIT TO SEE PATIENT
[2019-08-08 07:14] VITALS: BP 102/68
[2019-08-08 08:23] LABS: THYROID STIM HORMONE (HS) 4.84 uIU/ml (0.358-4.75)
[2019-08-08 08:48] LABS: VITAMIN D, 25-HYDROXY 36.7 ng/mL (30-100)
[2019-08-08 08:52] VITALS: BP 102/68
--- NOTE | 2019-08-08 09:00 | NUR ---
INDERAL NOT AVAILABLE FROM PHARMACY AT THIS TIME.
--- NOTE | 2019-08-08 11:59 | NUR ---
Patient resting quietly with no c/o discomfort. Respirations easy and regular. Vital signs stable. No overt distress. GIVENS,SASHA
--- NOTE | 2019-08-08 12:05 | NUR ---
AM GROUP PT ATTENDED GROUP BUT OBSERVED. PT IN AND OUT OF ACTIVITY'S. THIS STAFF DID ACTIVITY ASSESSMENT ON PT AND AT THE END PT LISTED ACTIVITY'S OF INTEREST BUT ALSO STATES "I ALSO WATCH PORN AND MASTURBATE" PT DID NOT MENTION ANYMORE INAPPROPRIATE STATEMENTS AT THIS TIME. PT WILL CONTINUE TO BE ENCOURAGED TO ATTEND AN DPARTICIPATE IN GROUP TO BEST OF PT ABILITY.
--- NOTE | 2019-08-08 12:47 | NUR ---
psychosocial hx completed.
--- NOTE | 2019-08-08 13:19 | NUR ---
P: VISUAL HALLUCINATIONS- STATING WITH THE GLARE ON THE WINDOWS FROM THE LIGHTS, HE CAN SEE OBJECTS ON THE WINDOWS. I: 1:1 WITH PT FOR THERAPEUTIC COMMUNICATION, REORIENT PT TO REALITY, ENCOURAGE MEDICATION COMPLIANCE, MONITOR BEHAVIORS WITH Q15 MINUTE SAFETY CHECKS R: PT STATES HE STILL SEES OBJECTS, MEDICATION COMPLIANT, PT STATED HE KNOWS THERE IS NOTHING ON THE WINDOWS AND IT IS JUST SOMETHING HE CAN SEE. P: CONTINUE WITH 1:1 FOR THERAPEUTIC COMMUNICATION, ENCOURAGE MEDICATIONS, REORIENT NEEDED, MONITOR BEHAVIORS WITH Q15 MINUTE SAFETY CHECKS. SEE [facility] FLOWSHEET FOR SPECIFIC MONITORING.
--- NOTE | 2019-08-08 15:52 | NUR ---
PM GROUP/ART PT ENCOURAGED TO ATTEND BUT CHOSE TO REMAIN IN BED SLEEPING AT THIS TIME. PT WILL CONTINUE TO BE ENCOURAGED TOP ATTEND AN DPARTICIPAT EIN GROUP TO BEST OF PT ABILITY.
[2019-08-08 19:46] VITALS: BP 110/63
--- NOTE | 2019-08-08 21:42 | NUR ---
Patient alert and oriented x 4. Patient states still having visual hallucinations seeing crosses and also glare from lights shining on window is causing him to see objects all over. Patient isolative to room except for meals and snacks. Patient compliant with medications without any difficulty. Provided 1:1 for therapeutic communication. Plan to continue to encourage medication compliance and continue to provide therapeutic communication. Also continue to encourage more interaction with staff and other patients. Q 15 minute safety checks continued and maintained. See [facility] flowsheet for further documentation.
--- NOTE | 2019-08-09 00:22 | NUR ---
24 HR chart check completed.
--- NOTE | 2019-08-09 01:54 | NUR ---
Patient requesting medicine for anxiety. Medicated with Vistaril po prn for anxiety/agitation. Will continue to monitor behaviors.
--- NOTE | 2019-08-09 05:50 | NUR ---
Patient slept approx. 2 1/2 hours throughout shift with multiple awakenings. Q 15 minute safety checks continued and maintained.
[2019-08-09 08:00] VITALS: BP 116/75
--- NOTE | 2019-08-09 18:22 | NUR ---
PT PREOCCUPIED WITH MEDICATIONS. PT STATES THAT HE IS SEEING THINGS. PT STATES HE SHOULD BE TAKING THE MEDICATIONS THAT HE WAS ON AT [facility]. PT ALSO STATES THAT HE TOLD [facility] AFTER 3 WEEKS OF INPATIENT TREATMENT THAT HE WAS STILL NOT READY TO GO HOME AND THEY DISCHARGED HIM ANYWAY. PT EDUCATED ON CURRENT MEDICATIONS AND TREATMENT PLAN. PT VERBALIZED UNDERSTANDING. WILL CONTINUE TO ENCOURAGE PT TO ACTIVELY PARTICIPATE IN TREATMENT PLAN AND ASK QUESTIONS WHEN NEEDED. WILL ENCOURAGE PARTICPATION IN GROUP THERAPY FOR SOCIALIZATION AND SUPPORT. Q15 MIN MONITORING PER POLICY.
[2019-08-09 20:00] VITALS: BP 115/96
--- NOTE | 2019-08-09 21:45 | NUR ---
Patient alert and oriented x 4. Patient states still having visual hallucinations seeing crosses and also glare from lights shining on window is causing him to see objects all over. Patient isolative to room except for meals and snacks. Patient compliant with medications without any difficulty. Provided 1:1 for therapeutic communication. Plan to continue to encourage medication compliance and continue to provide therapeutic communication. Also continue to encourage more interaction with staff and other patients. Q 15 minute safety checks continued and maintained. See [facility] flowsheet for further documentation.
--- NOTE | 2019-08-10 00:25 | NUR ---
24 HR chart check completed.
--- NOTE | 2019-08-10 05:41 | NUR ---
Patient slept apporox. 4 hours throughout shift with a few awakenings. Q 15 minute safety checks continued and maintained.
[2019-08-10 07:47] VITALS: BP 115/68
--- NOTE | 2019-08-10 08:11 | NUR ---
Patient eating breakfast with c/o feeling slightly anxious. Pt denies triggering event, states that he is hallucinating reflections and "bright J for David". Dr. Ye updated. Respirations easy and regular. Vital signs stable. No overt distress. PASQUALE HURLEY
--- NOTE | 2019-08-10 08:15 | NUR ---
Treatment Plan meeting with Dr. Ye, RN, AT, SW and Music Education Adjunct Professor. Plan for discharge middle of the week. Pt. will return home at discharge.
--- NOTE | 2019-08-10 09:55 | NUR ---
PT C/O MILD ANXIETY THIS AM. CONTINUES WITH MEDICATION PREOCCUPATION. PT ASSESSED FOR ANXIETY TRIGGERS, PROVIDED WITH EMOTIONAL SUPPORT AND 1:1 INTERACTION. PT EDUCATED ON ALL MEDICATIONS INCLUDING USES, DOSAGE, AND FREQUENCY. PT VERBALIZES UNDERSTANDING. PT DENIES ANY TRIGGERING EVENT FOR ANXIOUS FEELINGS. STATES "I JUST AM". PT STATES THAT THE LIGHTS AND REFLECTIONS ARE BRIGHT AND CAN SOMETIMES CAUSE HALLUCINATIONS. PT PRESENTED WITH REALITY AND ENCOURAGED TO VERBALIZE ANY INTERNAL THOUGHT PROCESSES TO STAFF THEY OCCUR. WILL CONTINUE TO PROVIDE EDUCATION, EMOTIONAL SUPPORT, AND 1:1 APPROPRIATE. WILL CONTINUE TO REDIRECT AND PRESENT REALITY. WILL ENCOURAGE MEDICATION COMPLIANCE. WILL ENCOURAGE PARTICIPATION IN GROUP THERAPY FOR SOCIALIZATION AND SUPPORT.
--- NOTE | 2019-08-10 10:05 | NUR ---
PER DR. LANGE, APPROACHED PT TO ASK IF PT WAS WILLING TO VOLUNTARILY SIGN IN, PT STATES YES. VOLUNTARY CONSENT READ VERBATIM TO PT, PT STATES "OK", SIGNED IN, AND STATES "OK. SO NOW I AM VOLUNTARY". VOLUNTARY CONSENT PLACED ON CHART.
--- NOTE | 2019-08-10 11:42 | NUR ---
AM GROUP/CURRENT EVENTS AND LIGHT THERAPY PT ATTENDED AND PARTICIPATED IN ALL GROUP ACTIVITIES. PT SAT IN A COMFY CHAIR AT THE BACK OF THE ROOM AND READ THE NEWSPAPER. PT WOULD OCCASIONALLY MAKE CONVERSATION WITH THIS ICU SPECIALIST. PT EXPRESSED NO HALLUCINATIONS OR SUICIDAL IDEATIONS WHILE IN GROUP. PT EXHIBITED NO SIGNS OF ANXIETY EITHER.
--- NOTE | 2019-08-10 13:18 | NUR ---
The patient has no complaints and is resting comfortably. PASQUALE HURLEY
--- NOTE | 2019-08-10 15:41 | NUR ---
PM GROUP PT ATTENDED AFTERNOON GROUP BUT CHOSE NOT TO PARTICIPATE IN ANY ACTIVITY OFFERED. PT SAT AT THE BACK OF THE ROOM WITH EYES CLOSED AND SANG ALONG WITH THE MUSIC. PT EXPRESSED NO SUICIDAL IDEATIONS OR ANXIETY WHILE IN GROUP.
[2019-08-10 19:35] VITALS: BP 114/62
--- NOTE | 2019-08-10 20:38 | NUR ---
EVENING GROUP/MOVIE AND POOPCORN! PT ATTENDED AND PARTICIPATED. PT DID NOT EXPRESS ANY HALLUCINATIONS. S.I. OR ANXIETY AT THIS TIME. PT WILL CONTINUE TO ATTEND AND PARTICIPATE IN FUTURE GROUP SESSIONS TO BEST OF PT ABILITY.
--- NOTE | 2019-08-10 21:33 | NUR ---
Patient alert and oriented x 4. Patient denies hallucinations at this time. Patient isolative to room except for meals and snacks. Patient compliant with medications without any difficulty. Provided 1:1 for therapeutic communication. Plan to continue to encourage medication compliance and continue to provide therapeutic communication. Also continue to encourage more interaction with staff and other patients. Q 15 minute safety checks continued and maintained. See [facility] flowsheet for further documentation.
--- NOTE | 2019-08-11 00:28 | NUR ---
24 HR chart check completed.
--- NOTE | 2019-08-11 05:17 | NUR ---
Patient slept approx, 5 hours throughout shift with couple awakenings. Q 15 minute safety checks continued and maintained.
[2019-08-11 07:40] VITALS: BP 100/64; BP 96/73
--- NOTE | 2019-08-11 07:58 | NUR ---
DR. ARNDT NOTIFIED OF PATIENT'S BLOOD PRESSURE 100/64 AND NOTIFIED OF SCHEDULED INDERAL 10MG TO BE GIVEN THIS MORNING. ORDERS TO HOLD AM DOSE.
--- NOTE | 2019-08-11 11:21 | NUR ---
Shift chart check completed.
--- NOTE | 2019-08-11 11:33 | NUR ---
P- PT STATES HE FEELS SLIGHTLY ANXIOUS BUT NOT BAD. PREOCCUPIED WITH MEDICATIONS. ISOLATIVE TO SELF. I- ASSESS MOOD, ORIENTATION, SI/HI, HALLUCINATIONS, DELUSIONS OR PAIN. 1:1 THERPEUTIC INTERACTION WITH EMOTIONAL SUPPORT AND VENTILATION OF FEELINGS. ASSESS FOR ANXIETY TRIGGERS. PROVIDE WITH MEDICATIONS ON TIME WITH EDUCATION ON EACH. ENCOURGANCE TO ATTEND/PARTICIPATE IN GROUP THERAPIES FOR EMOTIONAL SUPPORT AND SOCIALIZATION. ENCOURAGE TO UTILIZING COPING/RELAXATION TECHNIQUES. R- ALERT AND ORIENTED X3. PT STATES MOOD IS SLIGHTLY ANXIOUS AT TIMES; DENIES TRIGGERS FOR ANXIETY. STATES MEDICATIONS AND COPING/RELAXATION SKILLS EFFECITVE. DENIES SI/HI OR PAIN. PT STATES THAT HIS HALLUCINATIONS "ARE UNDER CONTROL". NO S/S OF INTERACTING WITH INTERNAL STIMULI. NO DELUSIONAL THOUGHT PROCESS NOTED. NO S/S OF DISTRESS NOTED. RESPS EVEN AND UNLABORED ON ROOM AIR. MEDICATION COMPLIANT. REMAINS PREOCCUPIED. 1:1 SLIGHTLY EFFECITVE. PT SITTING IN CHAIR DURING AM GROUP THERAPY, SLEEPING. EATING AND DRINKING ADEQUATELY. GAIT STEADY WHILE AMBULATING. MAKES NEEDS KNOWN. P- ASSESS MOOD, ORIENTATION, SI/HI, HALLUCINATIONS, DELUSIONS OR PAIN. ASSESS FOR ANXIETY TRIGGERS. ENCOURAGE TO CONTINUE UTILIZING COPING/RELAXATION TECHNIQUES. PROVIDE MEDICATIONS ON TIME WITH EDUCATION ON EACH. 1:1 THERAPEUTIC ITNERACTION WITH EMOTIONAL SUPPORT AND VENTILATION OF FEELINGS PROVIDED WHEN NECESSARY. ENCOURAGE TO ATTEND/PARTICIPATE IN GROUP THERAPIES FOR EMOTIONAL SUPPORT AND SOCIALIZATION. Q15 MINUTE CHECKS MAINTAINED FOR SAFETY.
--- NOTE | 2019-08-11 11:45 | NUR ---
AM GROUP/LIGHT AND COLOR THERAPY PT ATTENDED AND PARTICIPATED IN ALL GROUP ACITIVITES. PT EXPRESSED NO VISUAL HALLUCINATIONS OR SUICIDAL IDEATIONS WHILE IN GROUP.
--- NOTE | 2019-08-11 12:00 | NUR ---
Patient sat away from group about self-affirmations. Patient remained outside of group for "I Like Myself from A to Z" activity but did participate offering some answers.
--- NOTE | 2019-08-11 15:03 | NUR ---
Pt. inquiring about appointments that he has scheduled. Cancelled appointments 08/10/19 and spoke with rn community health Luís Stanley to notify that pt. has requested transportation cancelled as well.
--- NOTE | 2019-08-11 15:43 | NUR ---
PM GROUP/CRAFTS PT WAS PRESENT FOR AFTERNOON GROUP THERAPY SLEEPING IN A CHAIR AT THE BACK OF THE ROOM. PT WOKE AND LISTENED TO MUSIC AND HAD A SNACK. PT EXPRESSED NO HALLUCINATIONS OR SUICIDAL IDEATIONS WHILE IN GROUP
--- NOTE | 2019-08-11 17:43 | NUR ---
FLU VACCINE GIVE IN L DELTOID. PT TOLERATED THE PROCEDURE VERY WELL. NO ERYTHMIA, DISCOLORATION OR SWELLING NOTED TO SITE.
[2019-08-11 19:58] VITALS: BP 100/62
[2019-08-11 20:32] VITALS: BP 116/78
--- NOTE | 2019-08-11 20:48 | NUR ---
EVENING GROUP/ BINGO! PT ATTENDED AND PARTICIPATED IN GROUP. PT SITTING ALONE IN BACK OF ROOM PLAYING BINGO, ALTHOUGH OFFERED TO SIT AT TABLE WITH REST OF PT'S. PT DID NOT EXPRESS ANY ANXIETY, HALLUCINATIONS OR S.I. AT THIS TIME AND WILL CONTINUE TO ATTEND AND PARTICIPATE TO BEST OF PT ABILITY IN FUTURE GROUP SESSIONS.
--- NOTE | 2019-08-12 03:26 | NUR ---
P-ANXIETY I-PROVIDED 1:1 WITH EMOTIONAL SUPPORT NEEDED. ENCOURAGED MEDICATION COMPLIANCE AND EDUATED. MONITOR SLEEP. R- PT STATED "MY ANXIETY IS GETTING A LOT BETTER, THE MEDICATIONS IM ON ARE HELPING, I WANT TO FOLLOW UP WITH AFTER I LEAVE HERE". NO COMPLAINTS NOTED. MEDICATION COMPLIANT WITHOUT DIFFICULTY AFTER REVIEW. PT VOICES NO SI/HI, HALLUCINATIONS, OR PAIN. PT ALERT AND ORIENTED X4. MOOD STABLE. NO SIGNS OR SYMPTOMS OF DISTRESS NOTED. P-CONTINUE TO MONITOR MOOD AND BEHAVIORS. PROVIDE 1:1 WITH EMOTIONAL SUPPORT NEEDED. ENCOURAGE MEDICATION COMPLIANCE AND EDUCATE. MAINTAIN Q 15 MIN CHECKS.
--- NOTE | 2019-08-12 04:39 | NUR ---
24 HOUR CHART CHECK COMPLETED.
--- NOTE | 2019-08-12 05:49 | NUR ---
PATIENT OBSERVED ON Q 15 MIN CHECKS TO HAVE SLEPT APPROX 7 HOURS UNINTERRUPTED. NO SIGNS OR SYMPTOMS OF DISTRESS NOTED.
[2019-08-12 08:00] VITALS: BP 112/70
--- NOTE | 2019-08-12 08:15 | NUR ---
Treatment Plan meeting with Dr. Ye, RN, AT, SW and Nitro Worker. Plan for discharge Saturday/. Pt. will return home at discharge.
--- NOTE | 2019-08-12 08:31 | NUR ---
Patient eating breakfast with no c/o discomfort. Respirations easy and regular. Vital signs stable. No overt distress. PASQUALE HURLEY
--- NOTE | 2019-08-12 11:40 | NUR ---
AM GROUP/ENNEAGRAM PT ATTENDED AND PARTICIPATED IN ALL GROUP ACTIVITIES. PT WAS QUIET AND ON TASK. PT EXPRESSED NO SUICIDAL IDEATIONS NOR VISUAL HALLUCINATIONS.
--- NOTE | 2019-08-12 15:00 | NUR ---
PT DENIES ANXIETY AND HALLUCINATIONS TODAY. PT STATES HE BELIEVES THE MEDICATIONS ARE HELPING. PT REMAINS FOCUSED ON DOSAGES OF HIS MEDICATIONS AND FREQUENCY. PT EDUCATED ON ALL MEDICATIONS AND ENCOURAGED TO VERBALIZE ANY NEGATIVE OR INTERNAL THOUGHT PROCESSES. PT STATES HE WILL, PT IS PRESENT FOR ALL ACTIVITIES AND MEALS; HOWEVER, DOES NOT PARTICIPATE OR INTERACT WITH PEERS AND STAFF. WILL CONTINUE TO ENCOURAGE PT TO VERBALIZE FEELINGS OF ANXIOUSNESS OR HALLUCINATIONS. WILL ENCOURAGE MEDICATION COMPLIANCE. WILL PROVIDE MEDICATION EDUCATION. WILL ENCOURAGE ACTIVE PARTICIPATION IN GROUP THERAPY FOR SOCIALIZATION AND SUPPORT. Q 15 MIN MONITORING PER POLICY.
--- NOTE | 2019-08-12 15:48 | NUR ---
PM GROUP/MUSIC AND CRAFTS PT ATTENDED AFTERNOON GROUP THERAPY BUT DECLINED ANY ACTIVITY OFFERED. PT STATED, "THE LIGHT IN HERE HURTS MY EYES." PT CLOSED EYES FOR A WHILE AND WAS NOTED TO BE SINGING ALONG WITH THE MUSIC. PT EXPRESSED NO SUICIDAL IDEATIONS WHILE IN GROUP
--- NOTE | 2019-08-12 18:03 | NUR ---
Shift chart check completed.
[2019-08-12 19:23] VITALS: BP 117/71
--- NOTE | 2019-08-13 01:14 | NUR ---
PATIENT ALERT AND ORIENTED X4. MOOD STABLE. PT CALM, COOPERATIVE, AND ISOLATIVE TO SELF. ATE 100% OF HS SNACK. DURING 1:1 PATIENT STATED THAT HE HAD A GOOD TODAY AND THAT HIS NO LONGER HAS ANXIETY. PT DENIES SI/HI AND HALLUCINATIONS, NO NOTED RESPONDING TO INTERNAL STIMULI. PT MEDICATION COMPLIANT WITHOUT DIFFICULTY, EDUCATION PROVIDED. PT RECEIVED PRN TYLENOL 650MG REQUESTED AT 2037 FOR C/O OF A SORE THROAT WITH NO RATING DUE TO PATIENT STATING "I DONT KNOW, BEEN LIKE THIS ALL DAY". NO FURTHER COMPLAINTS NOTED SINCE ADMINISTRATION, PRN EFFECTIVE AT THIS TIME. PT CURRENTLY LAYING DOWN WITH EYES CLOSED, RESPIRATIONS EASY AND REGULAR, NO SIGNS OR SYMPTOMS OF DISTRESS NOTED. PLAN IS TO CONTINUE TO MONITOR MOOD AND BEHAVIORS. PROVIDE 1:1 WITH EMOTIONAL SUPPORT NEEDED. ENCOURAGE MEDICATION COMPLIANCE AND EDUCATE. MAINTAIN Q 15 MIN CHECKS.
--- NOTE | 2019-08-13 02:53 | NUR ---
24 HOUR CHART CHECK COMPLETED.
--- NOTE | 2019-08-13 05:33 | NUR ---
PATIENT RECEIVED PRN TYLENOL 650MG REQUESTED AT THIS TIME FOR C/O A SORE THROAT WITH A RATING 5/10, PT ALSO GIVEN WARM TEA. NO OTHER PHYSICAL COMPLAINTS NOTED.
--- NOTE | 2019-08-13 06:08 | NUR ---
PATIENT OBSERVED ON Q 15 MIN CHECKS TO HAVE SLEPT APPROX 7 HOURS THROUGHOUT THE NIGHT WITH NO AWAKENINGS OR SIGNS AND SYMPTOMS OF DISTRESS NOTED.
--- NOTE | 2019-08-13 06:14 | NUR ---
Dr. Crump notified of patient's c/o sore throat and awaiting new orders.
[2019-08-13 08:10] VITALS: BP 110/70
--- NOTE | 2019-08-13 09:30 | NUR ---
Treatment Plan meeting with Dr. eY, RN, AT, SW and Artificial Pearl Maker. Plan for discharge next week. Pt. will return home.
--- NOTE | 2019-08-13 10:40 | NUR ---
SPOKE WITH VANDANA IN LAB RE: DR VIZCAINO ORDER FOR FLUVOXAMINE LEVEL ON 08/14 PER LAB THIS ITEM IS NOT BUILT INTO OUR SIDE OF THE COMPUTER TO JUST SEND A MESSAGE TO LAB AND GIVE THE DETAILS RE:LAB DRAW.
--- NOTE | 2019-08-13 11:44 | NUR ---
AM GROUP/WORD FIND PT WAS PRESENT FOR MORNING GROUP THERAPY AND PARTICIPATED BY READING THE NEWSPAPER. PT WAS IN AND OUT OF THE ROOM AND SEEMED A LITTLE RESTLESS HE STOOD BY HIS CHAIR OFTEN. PT EXPRESSED NO SUICIDAL IDEATIONS WHILE IN GROUP
--- NOTE | 2019-08-13 12:48 | NUR ---
Met with pt individually. Pt paced during the meeting and made fleeting eye contact. Discussed pt's follow-up and that pt would like to see his counselor Srinivas Baker weekly. Pt also requested to speak to Srinivas by phone. Phoned [employer] and was informed that Srinivas was not working today. Made pt aware of this.
--- NOTE | 2019-08-13 14:14 | NUR ---
P: PT ISOALTIVE TO SELF AT TIMES THROUGHOUT THE DAY. PT SLIGHTLY ANXIOUS THIS MORNING, REQUESTING TO SPEAK WITH HIS COUNSELOR IN THE COMMUNITY, FABRICATION MIG WELDER UNABLE TO GET COUSELOR ON THE TELEPHONE. I: ENCOURAGED GROUP PARTICIPATION AND SOCIALIZATION, PROVIDE EMOTIONAL SUPPORT AND 1:1 FOR PT TO VOICE FEELINGS, ENCOURAGE MED COMPLIANCE AND PROVIDE MED EDUCATION R: PT ALERT TO PERSON, PLACE AND TIME. PT MED COMPLIANT WITHOUT DIFFICULTY. PT IN GROUP ROOM DURING GROUP READING NEWSPAPER, NO ACTIVE PARTICIPATION NOTED. PT CALM. PT AMBULATORY THROUGHOUT UNIT, GAIT STEADY. PT CONTINENT OF BOWEL AND BLADDER. P:MONITOR PT BEHAVIORS ON Q15 MIN SAFETY CHECKS, ENCOURAGE MED COMPLIANCE AND PROVIDE MED EDUCATION, ENCOURAGE GROUP PARTICIPATION AND SOCIALIZATION, PROVIDE EMOTIONAL SUPPORT AND 1:1 FOR PT TO VOICE FEELINGS.
--- NOTE | 2019-08-13 15:49 | NUR ---
PM GROUP/OWLS PT ATTENDED AFTERNOON GROUP THERAPY BUT REFUSED ANY ACTIVITY OFFERED. PT WOULD OCCASIONALLY ATTEMPT TO MAKE CONVERSATION OR ASK A QUESTION BUT WAS OTHERWISE QUIET AND KEPT TO HIMSELF. PT EXPRESSED NO VISUAL HALLUCINATIONS OR SUICIDAL IDEATIONS WHILE IN GROUP. PT DID ASK, "IS THERE A PSYCHOLOGIST HERE? I WOULD LIKE TO TALK TO HER" PT WAS ADVISED TO ASK NURSE OR DR. LANGE IN THE AM
[2019-08-13 19:37] VITALS: BP 115/72
--- NOTE | 2019-08-13 22:50 | NUR ---
24 HR chart check completed.
--- NOTE | 2019-08-14 01:25 | NUR ---
P-ISOLATIVE, MILD ANXIETY I-ENCOURAGE VENTILATION OF FEELINGS & PROVIDE EMOTIONAL SUPPORT, ADMINISTER MEDICATIONS, MONITOR SLEEP. R-PT HAS BEEN ISOLATIVE TO HIS ROOM & CAME OUT ONLY FOR SNACK KEEPING TO HIMSELF. ALERT & ORIENTED TO PERSON, PLACE & TIME. STATED THAT HE WAS HAVING PANIC ATTACKS PRIOR TO ADMISSION. STATED ANXIETY HAS DECREASED & HE IS FEELING BETTER. AMBULATES INDEPENDENTLY. CONTINENT OF BOWEL & BLADDER. DENIES ANY PHYSICAL COMPLAINTS. COMPLIANT TAKING MEDICATIONS. NO HALLUCINATIONS, DENIES SUICIDAL FEELINGS. P-CONTINUE TO MONITOR & PROVIDE PHYSICAL ASSISTANCE & EMOTIONAL SUPPORT NEEDED.
[2019-08-14 07:53] VITALS: BP 103/68
--- NOTE | 2019-08-14 08:15 | NUR ---
Treatment Plan meeting with Dr. Ye, RN, AT, SW and Academic Affairs Vice President. Plan for discharge Next week. Pt. will return home at discharge.
--- NOTE | 2019-08-14 08:45 | NUR ---
DR. NAGEL ON UNIT TO ASSESS PT, UPDATE PROVIDED.
--- NOTE | 2019-08-14 11:41 | NUR ---
AM GROUP PT DID NOT ATTEND MORNING GROUP THERAPY. PT WAS IN BED RESTING.
--- NOTE | 2019-08-14 12:34 | NUR ---
P: PT ISOLATIVE TO SELF THROUGHOUT THE DAY, REFUSED TO PARTICIPATE IN GROUP/ACTIVITIES. MOOD IS DEPRESSED I: PROVIDE EMOTIONAL SUPPORT AND 1:1 FOR PT TO VOICE FEELINGS, ENCOURAGE MED COMPLIANCE AND PROVIDE MED EDUCATION, ENCOURAGE GROUP PARTICIPATION AND SOCIALIZATION R: PT ALERT TO PERSON, PLACE AND TIME. PT MED COMPLIANT WITHOUT DIFFICULTY. PT CALM. PT CONTINUES TO BE ISOLTIVE AND REFUSES TO PARTICIPATE IN GROUP/ACTIVITIES. PT DOES NOT INITIATE CONVERSATION, WILL SPEAK WHEN SPOKEN TO. PT AMBULATORY THROUHGOUT UNIT, GAIT STEADY. PT CONTINENT OF BOWEL AND BLADDER. NO HALLUCINATIONS OR DELUSIONS NOTED. PT DENIES ANY SUICIDAL THOUGHTS. P: PROVIDE EMOTIONAL SUPPORT AND 1:1 FOR PT TO VOICE FEELINGS, ENCOURAGE MED COMPLIANCE AND PROVIDE MED EDUCATION, ENCOURAGE GROUP PARTICIPATION AND SOCIALIZATION, MONITOR PT BEHAVIORS ON Q15 MIN SAFETY CHECKS.
--- NOTE | 2019-08-14 15:39 | NUR ---
PM GROUP/MOVIE PT WAS PRESENT FOR AFTERNOON GROUP THERAPY SLEEPING IN A CHAIR AT THE BACK OF THE ROOM. PT DID NOT WAKE UNTIL THE END OF GROUP AND STATED, "I TOLD DR. LANGE THAT I WAS OVER MEDICATED. THAT'S WHY I'M SO TIRED."
[2019-08-14 18:20] LABS: BILIRUBIN NEGATIVE (NEGATIVE); BLOOD NEGATIVE (NEGATIVE); CLARITY CLEAR (CLEAR); COLOR YELLOW (YELLOW); GLUCOSE NEGATIVE (NEGATIVE); KETONE NEGATIVE (NEGATIVE); LEUKO ESTERASE NEGATIVE (NEGATIVE); NITRITE NEGATIVE (NEGATIVE); SPECIFIC GRAVITY 1.015 (1.005-1.030); UROBILINOGEN 0.2 E.U./dl (0.2-1.0)
[2019-08-14 18:30] LABS: EPITHELIAL CELLS 0-2
[2019-08-14 20:00] VITALS: BP 105/70
--- NOTE | 2019-08-14 21:16 | NUR ---
24 HR chart check completed.
--- NOTE | 2019-08-14 23:33 | NUR ---
P-ISOLATIVE, MILD ANXIETY I-ENCOURAGE VENTILATION OF FEELINGS & PROVIDE EMOTIONAL SUPPORT, ADMINISTER MEDICATIONS, MONITOR SLEEP. R-PT HAS BEEN ISOLATIVE TO HIS ROOM & CAME OUT ONLY FOR SNACK KEEPING TO HIMSELF. ALERT & ORIENTED TO PERSON, PLACE & TIME. LIMITED VERBALLY. STATED THAT HE IS FEELING BETTER BUT WAS FEELING OVERMEDICATED & HE TALKED TO DR LANGE ABOUT IT. REQUESTED & GIVEN CEPACOL LOZENGER FOR C/O SORE THROAT. AMBULATES INDEPENDENTLY. CONTINENT OF BOWEL & BLADDER. COMPLIANT TAKING MEDICATIONS. P-CONTINUE TO MONITOR & PROVIDE PHYSICAL ASSISTANCE & EMOTIONAL SUPPORT NEEDED.
--- NOTE | 2019-08-15 06:20 | NUR ---
PT HAS SLEPT PAST 2144 WITH 1 BRIEF AWAKENING TO GO TO THE BATHROOM.
[2019-08-15 08:02] VITALS: BP 101/63
--- NOTE | 2019-08-15 10:22 | NUR ---
DR. NAGEL ON UNIT TO ASSESS PT, UPDATE PROVIDED.
--- NOTE | 2019-08-15 10:46 | NUR ---
P: PT ISOLTIVE TO ROOM, REFUSING TO PARTICIAPTE IN GROUP/ACTIVITIES. PT MOOD IS DEPRESSED. I: PROVIDE EMOTIONAL SUPPORT AND 1:1 FOR PT TO VOICE FEELINGS, ENCOURAGE MED COMPLIANCE AND PROVDE MED EDUCATION, ENCOURAGE GROUP PARTICIPATION AND SOCIALIZATION R: PT ALERT TO PERSON, PLACE, TIME AND SITUATION. PT MED COMPLIANT WITHOUT DIFFICULTY. PT CONTINUES TO REFUSE TO PARTICIPATE IN GROUP. NO HALLUCINATIONS OR DELUSIONS NOTED. PT DENIES ANY SUICIDAL THOUGHTS, VERBALLY CONTRACTS FOR SAFETY IF SUCH THOUGHTS ARISE. PT AMBULATORY THROUGHOUT UNIT, GAIT STEADY. PT CONTINENT OF BOWEL AND BLADDER. P: MONITOR PT BEHAVIORS ON Q15 MIN SAFETY CHECKS, ENCOURAGE MED COMPLIANCE AND PROVIDE MED EDUCATION, ENCOURAGE GROUP PARTICIPATION AND SOCIALIZATION, PROVIDE EMOTIONAL SUPPORT AND 1:1 FOR PT TO VOICE FEELINGS.
--- NOTE | 2019-08-15 12:18 | NUR ---
AM GROUP PT CHOSE NOT TO ATTEND BUT TO REMAIN IN BED RESTING AT THIS TIME. PT WILL COTNINUE TO BE ENCOURAGED TO ATTEND AN DPARTICPATE IN FUTURE GROUP SESSIONS.
--- NOTE | 2019-08-15 15:41 | NUR ---
PM GROUP/LEISURE SKILLS PT ATTENDED ANDPARTICIPATED BY WATCHING [employer]. PT DID NOT EXPRESS ANY ANXIETY, S.I. OR HALLUCINATIONS AT THIS TIME. PT WILL CONTINUE TO BE ENCOURAGED TO ATTEND AND PARTICIPATE IN FUTURE GROUP SESSIONS.
[2019-08-15 20:02] VITALS: BP 116/70
--- NOTE | 2019-08-15 20:53 | NUR ---
24 HR chart check completed.
--- NOTE | 2019-08-15 21:51 | NUR ---
P-ISOLATIVE I-ENCOURAGE VENTILATION OF FEELINGS & PROVIDE EMOTIONAL SUPPORT, ADMINISTER MEDICATIONS, MONITOR SLEEP. R-PT REMAINS ISOLATIVE TO HIS ROOM & HIS SELF. ATE SNACK. ALERT & ORIENTED TO PERSON, PLACE, TIME & SITUATIONS. LIMITED VERBALLY WITH STAFF BUT DOES ANSWER QUESTIONS. AMBULATES INDEPENDENTLY WITH A STEADY GAIT. CONTINENT OF BLADDER. COMPLIANT TAKING MEDICATIONS. DID C/O CONSTIPATION & WAS MEDICATED WITH PRN MOM @ 2123 P-CONTINUE TO MONITOR & PROVIDE PHYSICAL ASSISTANCE & EMOTIONAL SUPPORT NEEDED.
--- NOTE | 2019-08-16 05:24 | NUR ---
PT SLEPT PAST 2300 WITH 1 BRIEF AWAKENING TO GO TO THE BATHROOM
--- NOTE | 2019-08-16 06:18 | NUR ---
AM BEDSIDE GLUCOSE 159
[2019-08-16 06:43] LABS: BASO % 0.4 % (0.0-1.0); EOS # 0.2 10*3/uL (0.0-0.4); EOS % 2.8 % (1.0-4.0); HEMATOCRIT 34.7 % (42.0-52.0); HEMOGLOBIN 11.1 g/dl (14.0-18.0); LYMPH # 1.1 10*3/uL (1.3-4.4); LYMPH % 15.3 % (27.0-41.0); MEAN CELL VOLUME 87.8 fl (80.0-94.0); MEAN CORPUSCULAR HGB 28.1 pg (27.0-31.0); MEAN PLATELET VOLUME 9.9 fl (9.6-12.3); MONO # 0.7 10*3/uL (0.1-1.0); MONO % 9.5 % (3.0-9.0); NEUT # 5.3 10*3/uL (2.3-7.9); NEUT % 71.7 % (47.0-73.0); PLATELET COUNT AUTOMATED 145 10*3/uL (130-400); RED BLOOD COUNT 3.95 10*6/uL (4.50-5.90); RED CELL DISTRI WIDTH 12.4 % (0-14.5); WHITE BLOOD COUNT 7.4 10*3/uL (4.8-10.8)
[2019-08-16 06:59] LABS: ALKALINE PHOSPHATASE 57 U/L (45-117); BUN 14 mg/dl (7-24); CHLORIDE 102 mmol/L (98-107); POTASSIUM 3.8 mmol/L (3.5-5.1); SGOT/AST 20 IU/L (3-35); SGPT/ALT 50 U/L (12-78); SODIUM 139 mmol/L (136-145); TOTAL PROTEIN 6.2 gm/dL (6.4-8.2)
[2019-08-16 07:48] VITALS: BP 99/58
--- NOTE | 2019-08-16 12:47 | NUR ---
AM GROUP/AFFIRMATIONS/MUSIC PT CHOSE NOT TO ATTEND OR PARTICIPATE AT THIS TIME AND REMAINED IN ROOM RESTING.
[2019-08-16 20:25] VITALS: BP 150/60
--- NOTE | 2019-08-16 23:27 | NUR ---
Shift chart check completed.
--- NOTE | 2019-08-17 00:15 | NUR ---
P-ISOLATIVE, C/O HAVING INCREASES DEPRESSION I-ENCOURAGE VENTILATION OF FEELINGS & PROVIDE EMOTIONAL SUPPORT, ADMINISTER MEDICATIONS, MONITOR SLEEP. R-PT LESS ISOLATIVE & GOES TO DINING ROOM WATCHING TV BUT KEEPS TO HIMSELF. ATE SNACK. ALERT & ORIENTED TO PERSON, PLACE, TIME & SITUATION. PT STATED, "I'M GETTING DEPRESSED. I DON'T KNOW IF THE DR KNOWS IT OR NOT BUT I'M A HARD CASE. I'M A PARANOID SCHIZOPHRENIC WITH OCD. MY ANXIETY IS GONE BUT I'M GETTING DEPRESSED. I NEED TO BE ON REMERON". AMBULATES INDEPENDENTLY WITH A STEADY GAIT. CONTINENT OF BLADDER. COMPLIANT TAKING MEDICATIONS. CONTINUES TO C/O SORE THROAT. USE PRN THROAT SPRAY. P-CONTINUE TO MONITOR & PROVIDE PHYSICAL ASSISTANCE & EMOTIONAL SUPPORT NEEDED.
--- NOTE | 2019-08-17 04:50 | NUR ---
PT HAS SLEPT FROM [id number]. REQUESTED & MEDICATED WITH PRN TYLENOL FOR C/O "HEAD COLD" & CHLORASEPTIC SPRAY FOR C/O SORE THROAT. RATED PAIN 2/10.
[2019-08-17 08:07] VITALS: BP 126/88
--- NOTE | 2019-08-17 08:52 | NUR ---
Treatment Plan meeting was held with Dr. Ye, RN, AT, SW and Sort Operations Supervisor. Plan for discharge at the end of the week. Pt. will return home at discharge.
--- NOTE | 2019-08-17 11:39 | NUR ---
AM GROUP PT WAS PRESENT FOR MORNING GROUP THERAPY BUT DID NOT PARTICIPATE. PT WOULD OCCASIONALLY STAND BY HIS CHAIR. PT OBSERVED PEERS AT WORK AND DID NOT EXPRESS ANY HALLUCINATIONS OR ANXIETY WHILE IN GROUP
--- NOTE | 2019-08-17 11:53 | NUR ---
PT C/O HEADACHE, PT DID NOT RATE ON PAIN SCALE, STATED "IT DOESNT HURT BAD IT DID YESTERDAY PT MEDICATED WITH TYLENOL 650 MG PO PRN PER PT REQUEST.
--- NOTE | 2019-08-17 14:27 | NUR ---
P: PT ISOLATIVE TO ROOM THROUGHOUT THE DAY. PT REFUSING TO SHOWER STATES "I CANT I HAVE A HEAD COLD" I: PROVIDE EMOTIONAL SUPPORT AND 1:1 FOR PT VOICE FEELINGS, ENCOURAGE GROUP PARTICIPATION AND SOCIALIZATION, ENCOURAGE PT TO COMPLETE ADL'S R: PT ALERT TO PERSON, PLACE AND TIME. PT MED COMPLIANT WITHOUT DIFICULTY, MED EDUCATION PROVIDED. PT REMAINS ISOLATIVE AT TIMES. PT CONTINUES TO REFUSE TO SHOWER. NO HALLUCINATIONS OR DELUSIONS NOTED. PT DENIES ANY SUICIDAL THOUGHTS, VERBALLY CONTRACTS FOR SAFETY IF SUCH THOUGHTS ARISE. PT AMBULATORY THROUGHOUT UNIT, GAIT STEADY. PT CONTINENT OF BOWEL AND BLADER, PT HAD INCONTINENCE EPISODE OF BOWEL TODAY, CARE PROVIDED NEEDED. P: MONITOR PT BEHAVIORS ON Q15 MIN SAFETY CHECKS, ENCOURAGE MED COMPLIANCE AND PROVIDE MED EDUCATION, ENCOURAGE GROUP PARTICIPATION AND SOCIALIZATION, PROVIDE EMOTIONAL SUPPORT AND 1:1 FOR PT TO VOICE FEELINGS.
--- NOTE | 2019-08-17 15:45 | NUR ---
PM GROUP PT DID NOT ATTEND AFTERNOON GROUP THERAPY. PT WAS IN HIS ROOM OR IN THE YEBOAH LOOKING OUT THE WINDOW
[2019-08-17 19:32] VITALS: BP 129/81
--- NOTE | 2019-08-17 20:42 | NUR ---
EVENING GROUP/HUMOR/FOOTBALL PT ATTENDED AND PARTICIPATED BY WATCHING FOOTBALL. PT QUIET AND KEPT TO SELF. PT DID NOT EXPRESS ANY VISUAL HALLUCINATIONS, ANXIETY, OR S.I. AT THIS TIME.
--- NOTE | 2019-08-17 21:37 | NUR ---
Medicated with Tylenol for c/o headache. Will monitor effectiveness.
--- NOTE | 2019-08-17 21:49 | NUR ---
Patient alert and oriented x 4. Patient denies hallucinations at this time. Patient isolative to self but in diningroom with other patients watching football on TV. Patient compliant with medications without any difficulty. Provided 1:1 for therapeutic communication. Plan to continue to encourage medication compliance and continue to provide therapeutic communication. Also continue to encourage more interaction with staff and other patients. Q 15 minute safety checks continued and maintained. See [facility] flowsheet for further documentation.
[2019-08-18 00:07] LABS: CLONAZEPAM (KLONOPIN),SERUM 21 ng/mL (20-70)
--- NOTE | 2019-08-18 00:13 | NUR ---
24 HR chart check completed.
--- NOTE | 2019-08-18 05:28 | NUR ---
PT 6 HOURS BROKEN SLEEP PATTERN FOR TOILETING NEEDS.
[2019-08-18 07:48] VITALS: BP 103/58
--- NOTE | 2019-08-18 08:15 | NUR ---
Treatment Plan meeting with Dr. Ye, RN, AT, SW and Merchandising Manager. Plan for discharge Saturday/Possible Saturday discharge. Pt. will return home at discharge.
--- NOTE | 2019-08-18 10:05 | NUR ---
DR. VILLAFUERTE AND TEAM ON FLOOR TO ASSESS PT, UPDATE PROVIDED.
--- NOTE | 2019-08-18 11:42 | NUR ---
AM GROUP/SOCIAL SKILLS PT WAS PRESENT AT THE START OF MORNING GROUP THERAPY BUT DECIDED TO LEAVE TELLING THE NURSING STUDENTS, "SHE IS DRIVING ME CRAZY. SHE DOESN'T STOP TALKING" REFERING TO A PEER. PT LEFT THE DAYROOM AND DID NOT RETURN.
--- NOTE | 2019-08-18 12:45 | NUR ---
P- AGITATION/IRRITABILITY; ISOLATIVE TO SELF. FLAT AFFECT. I- ASSESS MOOD, ORIENTATION, SI/HI, HALLUCINATIONS, DELUSIONS, OR PAIN. PROVIDE MEDICATIONS ON TIME WITH EDUCATION ON EACH. 1:1 THERAPEUTIC INTERACTION WITH EMOTIONAL SUPPORT AND VENTILATION OF FEELINGS PROVIDED. ENCOURAGE TO UTILIZE LOW STIMULI/LIGHT ENVIRONMENT. ENCOURAGE TO ATTEND/PARTICIPATE IN GROUP THERAPY FOR EMOTIONAL SUPPORT AND SOCIALIZATION. PROVIDE COPING/RELAXATION TECHNIQUES AND DIVERSIONAL ACTIVITIES. R- ALERT AND ORIENTED X4. MOOD AGITATED/IRRITABLE; FLAT AFFECT. PT STATES "I CANT STAND THAT GIRL BACK THERE, SHE DOES NOT STOP TALKING. IT GETS ON MY LAST NERVE AND MAKES ME AGITATED". 1:1 THERAPEUTIC INTERACTION SLIGHTLY EFFECTIVE. PT STATED THAT HE STILL WANTED TO STAY IN THE DINING ROOM WHEN LOW STIMULI/LIGHT ENVIRONMENT WAS OFFERED. PT SITTING IN DINING ROOM BY HIMSELF, NOT INTERACTING WITH PEERS. INTERACT WITH STAFF WHEN SPOKEN TO FIRST. PT PACING FROM ROOM, TO QUIET ROOM DURING AM GROUP. REFUSE TO UTILIZE COPING/RELAXATION TECHNIQUES OR DIVERSIONAL ACTIVITIES. PT STATED "I CANT GO IN THERE, SHE IS TALKING NONSTOP". 1:1 INTERACTION SLIGHTLY EFFECTIVE. REMAINS ISOLATIVE TO SELF. DENIES SI/HI, HALLUCINATIONS OR PAIN. NO S/S OF INTERACTING WITH INTERNAL STIMULI. NO DELUSIONAL THOUGHT PROCESS NOTED. NO S/S OF DISTRESS NOTED. RESPS EVEN AND UNLABORED ON ROOM AIR. GAIT STEADY WHILE AMBULATING. MAKES NEEDS KNOWN. MEDICATION COMPLIANT WITH NO DIFFCULITES. EATING AND DRINKING ADEQUATELY. P- ASSESS MOOD, ORIENTATION, SI/HI, HALLUCINATIONS, DELUSIONS OR PAIN EVERY SHIFT. PROVIDE MEDICATIONS ON TIME WITH EDUCATION ON EACH. 1:1 THERAPEUTIC INTERACTION WITH EMOTIONAL SUPPORT AND VENTILATION OF FEELINGS PROVIDED. ENCOURAGE TO ATTEND/PARTICIPATE IN GROUP THERAPY FOR EMOTIONAL SUPPORT AND SOCIALIZATION. ENCOURAGE TO UTILIZE LOW STIMULI/LIGHT ENVIRONMENT WHEN AGITATION/IRRITABLE. ENCOURAGE TO UTILIZE COPING/RELAXATION TECHNIQUES AND DIVERSIONAL ACTIVITIES. Q15 MINUTE CHECKS MAINTAINED FOR SAFETY.
--- NOTE | 2019-08-18 13:15 | NUR ---
Individual time spent with pt late this AM. Pt shared his concerns about panic attacks returning. Pt confirmed that it has been one week since his last panic attack. Discussed this further and pt shared additional history in regards to his panic attacks. Allowed pt to express his emotions and provided support. Pt then spoke of his depression but did admit that his depression is improving. Discussed pt's current medications. Discussed pt's support system found in two close friends and pt's eldest brother. When asked what has helped pt cope with his anxiety and depression, pt stated that he looks forward to going to the [facility] and spending time there with his friends. Pt also spoke of his Hinduism janette. Pt was spoft-spoken. He would make intermittent eye contact and displays a flat affect. Pt admits to depression but also that it is lessening. Pt currently denies anxiety. After meeting with pt, pt walked to the activity room.
--- NOTE | 2019-08-18 13:44 | NUR ---
Shift chart check completed.
--- NOTE | 2019-08-18 14:58 | NUR ---
This technical report writer was informed by one of the student nurses that pt had expressed that he would like to call his son Johnnie but that pt did not have the phone number. Retrieved phone number from notebook in pt's belongings. Met with pt and gave him Johnnie's phone number. Pt stated that he would call Johnnei later this evening.
--- NOTE | 2019-08-18 15:41 | NUR ---
PM GROUP PT ATTENDED AFTERNOON GROUP BUT REFUSES ANY ACTIVITY OFFERED. PT SAT AT THE BACK OF THE ROOM IN A COMFY CHAIR WITH HIS HEAD DOWN AND DID NOT ENGAGE IN CONVERSATION WITH PEERS OR STAFF. PT EXPRESSED NO VISUAL HALLUCINATIONS NOR EXHBITED ANY ANXIETY WHILE IN GROUP.
--- NOTE | 2019-08-18 16:21 | NUR ---
Left Message for Sharepoint Admin Luís Stanley to notify that discharge is planned for the end of the week. Possible Saturday discharge.
[2019-08-18 20:05] VITALS: BP 103/75
--- NOTE | 2019-08-18 22:58 | NUR ---
Patient alert and oriented x 4. Patient denies hallucinations at this time. Patient isolative to self in his room. Patient compliant with medications without any difficulty. Provided 1:1 for therapeutic communication. Plan to continue to encourage medication compliance and continue to provide therapeutic communication. Also continue to encourage more interaction with staff and other patients. Q 15 minute safety checks continued and maintained. See [facility] flowsheet for further documentation.
--- NOTE | 2019-08-19 00:12 | NUR ---
24 HR chart check completed.
--- NOTE | 2019-08-19 01:53 | NUR ---
TYLENOL GIVEN FOR C/O THROAT AND HEAD PAIN 02/27
--- NOTE | 2019-08-19 05:25 | NUR ---
Patient slept approx. 6 hours throughout shift. Q 15 minute safety checks continued and maintained.
--- NOTE | 2019-08-19 07:48 | NUR ---
DR. VILLAFUERTE AND DR. ARNDT ON FLOOR TO ASSESS PT, UPDATE PROVIDED.
[2019-08-19 07:56] VITALS: BP 103/59
--- NOTE | 2019-08-19 08:15 | NUR ---
Treatment Plan meeting with Dr. Ye, RN, AT, SW and Channel Rebuilder. Plan for discharge at the end of the week, beginning of next week. Pt. will return home at discharge.
--- NOTE | 2019-08-19 11:47 | NUR ---
AM GROUP PT DID NOT ATTEND MORNING GROUP THERAPY. PT WAS WALKING THE YEBOAH. OCCATIONALLY PT WOULD ENTER DAYROOM, SIT FOR A MINUTE AND LEAVE AGAIN
--- NOTE | 2019-08-19 15:06 | NUR ---
Pt stated to this speech writer that he continues to feel better than he had previously. Pt spoke about about discharging soon and goals that he hopes he accomplishes. Pt was pleasant during conversation. He admits to depression but states it is lessening each day. Denies anxiety at this time.
--- NOTE | 2019-08-19 15:12 | NUR ---
P- ISOLATIVE TO SELF. REFUSE TO ATTEND/PARTICIPATE IN GROUP THERAPIES. I- ASSESS MOOD, ORIENTATION, SI/HI, HALLUCINATIONS, DELUSIONS OR PAIN. PROVIDE MEDICATIONS ON TIME WITH EDUCATION ON EACH. 1:1 THERAPEUTIC INTERACTION WITH EMOTIONAL SUPPORT AND VENTILATION OF FEELINGS PROVIDED. ENCOURAGE INTERACTION WITH PEERS AND STAFF. ENCOURAGE TO ATTEND/PARTICIPATE IN GROUP THERAPIES FOR EMOTIONAL SUPPORT AND SOCIALIZATION. R- ALERT AND ORIENTED X4. PT STATES THAT HE IS FEELING A LOT BETTER AND DOES NOT FEEL DEPRESSED. PT EXPRESSED THAT HE IS FINALLY NOT FEELING SO DOWN AND IS LOOKING FORWARD TO DISCHARGE. PT REMAINS ISOLATIVE TO SELF WHEN SITTING IN THE DINING ROOM AND REFUSING TO ATTEND/PARTICIPATE IN GROUP THERAPIES EVEN WITH MUCH ENCOURAGEMENT PROVIDED. PT WILL WALK IN THE YEBOAH, TO HIS ROOM, OR WILL SIT IN THE DINING ROOM FOR A SHORT WHILE AND THEN LEAVE. PT WILL TALK TO STAFF WHEN SPOKEN TO FIRST. MEDICATION COMPLIANT. DENIES SI/HI, HALLUCINATIONS OR PAIN. NO S/S OF INTERACTING WITH INTERNAL STIMULI. NO DELUSIONAL THOUGHT PROCESS NOTED. NO S/S OF DISTRESS NOTED. RESPS EVEN AND UNLABORED ON ROOM AIR. GAIT STEADY WHILE AMBULATING. MAKES NEEDS KNOWN. PT TALKS WITH A FLAT AFFECT. P- ASSESS MOOD, ORIENTATION, SI/HI, HALLUCINATIONS, DELUSIONS OR PAIN EVERY SHIFT. PROVIDE MEDICATIONS ON TIME WITH EDUCATION ON EACH. 1:1 THERAPEUTIC INTERACTION PROVIDED WHEN NECESSARY. CONTINUE TO ENCOURAGE PT TO ATTEND/PARTICIPATE IN GROUP THERAPIES. ENCOURAGE INTERACTION WITH PEERS AND STAFF. Q15 MINUTE CHECKS MAINTAINED FOR SAFETY.
--- NOTE | 2019-08-19 15:40 | NUR ---
PM GROUP PT CHOSES NOT TO PARTICIPATE IN GROUP THERAPY AND IS IN AND OUT OF THE ROOM. PT WILL SIT FOR A FEW MINUTES THEN GET UP AND LEAVE AGAIN
--- NOTE | 2019-08-19 15:42 | NUR ---
Shift chart check completed.
[2019-08-19 19:44] VITALS: BP 111/60
--- NOTE | 2019-08-19 23:49 | NUR ---
The patient has no complaints and is resting comfortably. PASQUALE HURLEY
--- NOTE | 2019-08-20 02:18 | NUR ---
24 HR chart check completed.
--- NOTE | 2019-08-20 06:03 | NUR ---
The patient has no complaints and is resting comfortably. PT SLEPT APPROXIMATELY 5 INTERRUPTED HOURS. PASQUALE HURLEY
[2019-08-20 06:33] LABS: CHOLESTEROL 141 mg/dL (<200); HDL CHOLESTEROL 35 mg/dl (40-60); LDL CHOLESTEROL 95 mg/dL (9-159); TRIGLYCERIDES 57 mg/dl (<150); VLDL CHOLESTEROL 11 mg/dL (6-40)
--- NOTE | 2019-08-20 07:50 | NUR ---
DR. VILLAFUERTE AND DR. ARNDT ON FLOOR TO ASSESS PT. UPDATE PROVIDED.
[2019-08-20 08:00] VITALS: BP 104/65
--- NOTE | 2019-08-20 14:50 | NUR ---
P- ISOLATIVE TO SELF. REFUSE TO ATTEND/PARTICIPATE IN GROUP THERAPY/MILIEU ACTIVITIES. I- ASSESS MOOD, ORIENTATION, SI/HI, HALLUCINATIONS, DELUSIONS OR PAIN. PROVIDE MEDICATIONS ON TIME WITH EDUCATION ON EACH. 1:1 THERAPEUTIC INTERACTION WITH EMOTINOAL SUPPORT AND VENTILATION OF FEELINGS. ENCOURAGE TO ATTEND/PARTICIPATE IN GROUP THERAPIES/MILIEU ACTIVITIES FOR EMOTIONAL SUPPORT AND SOCIALIZATION. ENCOURAGE SOCIALIZATION WITH PEERS AND STAFF. R- ALERT AND ORIENTED X3. PT STATES HIS MOOD IS "GOOD". FLAT AFFECT. DENIES SI/HI, HALLUCINATIONS OR PAIN. NO S/S OF INTERACTING WITH INTERNAL STIMULI. NO DELUSIONAL THOUGHT PROCESS NOTED. NO S/S OF DISTRESS NOTED. RESPS EVEN AND UNLABORED ON ROOM AIR. GAIT STEADY WHILE AMBULATING. MAKES NEEDS KNOWN. REMAINS ISOLATIVE TO SELF; SITTING IN DINING ROOM BY HIMSELF NOT TALKING TO OTHERS, SITTING IN QUIET ROOM, OR SITTING IN HIS ROOM. WILL INTERACT WITH STAFF WHEN TALK TO FIRST. FLAT AFFECT. MEDICATION COMPLIANT. EATING AND DRINKING ADEQUATELY. PT CONTINUES TO REFUSE TO ATTEND/PARTICIPATE IN GROUP THERAPY/MILIEU ACTIVITIES. 1:1 INTERACTION SLIGHTLY EFFECTIVE. P- ASSESS MOOD, ORIENTATION, SI/HI, HALLUCINATIONS, DELUSIONS OR PAIN EVERY SHIFT. 1:1 THERAPEUTIC INTERACTION WITH EMOTIONAL SUPPORT AND VENTILATION OF FEELINGS PROVIDED WHEN NECESSARY. ENCOURAGE INTERACTION WITH PEERS AND STAFF. ENCOURAGE TO ATTEND/PARTICIPATE IN GROUP THERAPIES/MILIEU ACTIVITIES FOR EMOTIONAL SUPPORT AND SOCIALIZATION. PROVIDE MEDICATIONS ON TIME WITH EDUCATION ON EACH. Q15 MINUTE CHECKS MAINTAINED FOR SAFETY.
--- NOTE | 2019-08-20 15:13 | NUR ---
Shift chart check completed.
--- NOTE | 2019-08-20 15:54 | NUR ---
Pt requested to meet with this job specification writer. Pt stated that he had wanted to meet with Dr Ye again today because he need a certain med for today. Pt asked if this job specification writer could contact Dr Ye and request Sildenafil for pt. This job specification writer did text Dr Ye with pt's request. Pt later spoke to this job specification writer and stated, "You know that med I requested, I wanted to tell you what it is." Informed pt that this job specification writer was aware that it was Viagra. Informed pt that Dr Ye would probably discuss this request with pt tomorrow.
[2019-08-20 19:36] VITALS: BP 102/68
--- NOTE | 2019-08-20 19:51 | NUR ---
24 HR chart check completed.
--- NOTE | 2019-08-20 20:55 | NUR ---
P-C/O HOPELESSNESS I-ENCOURAGE VENTILATION OF FEELINGS & PROVIDE EMOTIONAL SUPPORT, ADMINISTER MEDICATIONS, MONITOR SLEEP. R-PT AMBULATING IN THE YEBO[place] & SPENDING TIME IN THE DINING ROOM BUT KEEPS TO HIMSELF. ATE SNACK. ALERT & ORIENTED TO PERSON, PLACE, TIME & SITUATION. PT STATED, "MY ANXIETY & DEPRESSION ARE UNDER CONTROL. I FEEL A LITTLE BIT OF HOPELESSNESS. 64 YEARS OLD, NOT MUCH TO LOOK FORWARD TO. I'M AFRAID OF GETTING DEMENTIA." SUPPORT PROVIDED. AMBULATES INDEPENDENTLY WITH A STEADY GAIT. CONTINENT OF BLADDER. COMPLIANT TAKING MEDICATIONS. P-CONTINUE TO MONITOR & PROVIDE PHYSICAL ASSISTANCE & EMOTIONAL SUPPORT NEEDED.
--- NOTE | 2019-08-21 06:06 | NUR ---
PT HAS SLEPT PAST 2129
[2019-08-21 07:38] VITALS: BP 113/66
--- NOTE | 2019-08-21 08:15 | NUR ---
Treatment Plan meeting with Dr. Ye, RN, AT, SW and Principal Librarian. Plan for discharge Next week. Pt. will return home at discharge.
--- NOTE | 2019-08-21 10:10 | NUR ---
DR NAGEL ON UNIT TO ASSESS PT, UPDATE PROVIDED.
--- NOTE | 2019-08-21 11:52 | NUR ---
AM GROUP PT ATTENDED MORNING GROUP THERAPY AND PARTICIPATED BY PLAYING CARDS WITH PEER AND NURSING STUDENTS. PT WAS ON TASK AND QUIET. PT EXPRESSED NO VISUAL HALLUCINATION OR SUICIDAL IDEATIONS WHILE IN GROUP. PT EXHIBITED NO INAPPROPRIATE BEHAVIORS.
--- NOTE | 2019-08-21 15:46 | NUR ---
PM GROUP PT ATTENDED AND PARTICIPATED IN AFTERNOON GROUP THERAPY BY LISTENING TO MUSIC AND RESTING. PT EXPRESSED NO VISUAL HALLUCINATIONS NOR ANXIOUS THOUGHTS WHILE IN GROUP.
[2019-08-21 20:04] VITALS: BP 114/66
--- NOTE | 2019-08-21 20:58 | NUR ---
24 HR chart check completed.
--- NOTE | 2019-08-21 21:10 | NUR ---
P-ISOLATIVE I-ENCOURAGE VENTILATION OF FEELINGS & PROVIDE EMOTIONAL SUPPORT, ADMINISTER MEDICATIONS, MONITOR SLEEP. R-PT AMBULATING IN THE YEBOAH & SPENDING TIME IN THE DINING ROOM BUT KEEPS TO HIMSELF. ANOTHER MALE PATIENT DID MAKE A SARCASTIC REMARK DIRECTED AT PT & PT RESPONDED BACK VERBALLY. WAS REDIRECTED & INFORMED TO INGORE NEGATIVE REMARKS FROM OTHER PATIENT, SUPPORT PROVIDED & PT STATED UNDERSTANDING & HAS DONE SO. ATE SNACK. ALERT & ORIENTED TO PERSON, PLACE, TIME & SITUATION. DENIES HAVING ANY ANXIETY OR DEPRESSION. INDEPENDENT. STEADY GAIT. CONTINENT OF BLADDER & BOWEL & STATED HE DID HAVE A SMALL BM TODAY. COMPLIANT TAKING MEDICATIONS. SHOWERED THIS EVENING. P-CONTINUE TO MONITOR & PROVIDE PHYSICAL ASSISTANCE & EMOTIONAL SUPPORT NEEDED.
--- NOTE | 2019-08-22 06:20 | NUR ---
PT HAS SLEPT FROM [id number]
[2019-08-22 07:34] VITALS: BP 139/60
--- NOTE | 2019-08-22 09:58 | NUR ---
DR. NAGEL ON UNIT TO ASSESS PATIENT.
--- NOTE | 2019-08-22 11:57 | NUR ---
AM GROUP/CARDS/MUSIC PT ATTENDED AND PARTICIPATED IN ALL GROUP ACTIVITY'S. PT PLEASANT AND ON TASK WITH NO S.I., HALLUCINATIONS, OR ANXIETY EXPRESSED AT THIS TIME. AFTER PLAYING CARDS PT STARTED A SHORT CONVERSATION WITH SOME OF THE NURSING STUDENTS. PT WILL CONTINUE TO ATTEND AND PARTICIPATE IN FUTURE GROUP SESSIONS.
--- NOTE | 2019-08-22 15:08 | NUR ---
PATIENT IS ALERT AND ORIENTED TO PERSON, PLACE, TIME AND SITUATION; ABLE TO VOICE NEEDS. MOOD IS STABLE. DENIES ANY HALLUCINATIONS, DELUSIONS, HI/SI OR PAIN. INDEPENDENT WITH ACTIVITIES OF DAILY LIVING, CONTINENT OF BOWEL AND BLADDER. SET UP FOR MEALS, INTAKES ARE GOOD WITH ADEQUATE FLUIDS. MEDICATION COMPLAINT WITH EDUCATION PROVIDED. Q 15 MINUTE SAFETY CHECKS MAINTAINED. NO SEXUALLY INAPPROPRIATE BEHAVIOR OBSERVED. CONTINUE TO MONITOR MOOD, FOR HALLUCINATIONS/DELUSIONS; THOUGHTS OF SUICIDAL IDEATIONS. PROVIDE ONE ON ONE AND REDIRECTIONS NEEDED. ENCOURAGE TO ULTIZE COPING SKILLS WHEN BECOMING ANXIOUS/DEPRESSED.
--- NOTE | 2019-08-22 15:45 | NUR ---
PM GROUP/MOVIE PT ATTENDED AND PARTICIPATED IN GROUP BY RELAXING AND WATCHING MOVIE. PT PLEASANT WITH NO S.I., ANXIETY OR HALLUCINATIONS EXPRESSED AT THIS TIME.
[2019-08-22 19:56] VITALS: BP 130/68
--- NOTE | 2019-08-22 22:19 | NUR ---
Patient alert and oriented x 4. Patient denies hallucinations at this time. Patient isolative to self in his room. Patient compliant with medications without any difficulty. Provided 1:1 for therapeutic communication. Plan to continue to encourage medication compliance and continue to provide therapeutic communication. Also continue to encourage more interaction with staff and other patients. Q 15 minute safety checks continued and maintained. See [facility] flowsheet for further documentation.
--- NOTE | 2019-08-23 00:20 | NUR ---
24 HR chart check completed.
--- NOTE | 2019-08-23 05:41 | NUR ---
Patient slept approx. 7 hours throughout shift with one awakening. Q 15 minute safety checks continued and maintained.
[2019-08-23 07:34] VITALS: BP 112/62
--- NOTE | 2019-08-23 09:14 | NUR ---
PT QUIET, KEEPS TO HIMSELF FREQUENTLY BUT WILL SPEAK WHEN INTERACTED WITH, PT MEDICAITON COMPLIANT, NO SI/HI OR DELUSIONS NOTED. PT SAID THAT HE GOES TO HIS ROOM OFTEN BECAUSE DEALING WITH SOME OF THE PEERS ON THE UNIT BOTHER HIM GREATLY. PT HAS BEEN IN QUIET ROOM BY HIMSELF READING A BOOK THIS AM. ATE BREAKFAST WITHOUT COMPLAINT. PT STATES HIS ANXIETY HAS DECREASED BUT IF HE FOCUSES TO MUCH HE CAN TELL HIS DEPRESSION IS STILL THERE BUT MUCH BETTER THEN BEFORE. CONTINUE TO MONITOR AND ENCOURAGE COPING SKILLS
--- NOTE | 2019-08-23 10:45 | NUR ---
DR. NAGEL ON UNIT TO ASSESS PATIENT.
--- NOTE | 2019-08-23 15:49 | NUR ---
Shift chart check completed.
[2019-08-23 20:17] VITALS: BP 130/88
--- NOTE | 2019-08-23 22:04 | NUR ---
Patient alert and oriented x 4. Patient denies hallucinations at this time. Patient in dining room with other patients for snacks but continued to be isolative to self. Patient compliant with medications without any difficulty. Provided 1:1 for therapeutic communication. Plan to continue to encourage medication compliance and continue to provide therapeutic communication. Also continue to encourage more interaction with staff and other patients. Q 15 minute safety checks continued and maintained. See [facility] flowsheet for further documentation.
--- NOTE | 2019-08-24 00:28 | NUR ---
24 HR chart check completed.
--- NOTE | 2019-08-24 05:34 | NUR ---
Patient slept approx. 5 hours throughout shift. Q 15 minute safety checks continued and maintained.
[2019-08-24 07:50] VITALS: BP 109/68
[2019-08-24] MEDS ORDERED: HOMEMED PO (09:21)
[2019-08-24] MEDS ORDERED: ROZEREM8 MG PO (09:21)
[2019-08-24] MEDS ORDERED: KLONOPIN2 M1 PO (09:21)
[2019-08-24] MEDS ORDERED: MIRTAZAPINE45 MG PO (09:21)
[2019-08-24] MEDS ORDERED: OLANZAPINE7.5 M1 PO (09:21)
[2019-08-24] MEDS ORDERED: OLANZAPINE5 MG PO (09:21)
--- NOTE | 2019-08-24 10:35 | NUR ---
Treatment plan meeting held with Dr Ye, RN, PUBLICIST-S, and financial aid coordinator. Pt to discharge today or tomorrow. Pt will return home with follow-up at [facility] for psychiatry and [place] for counseling.
--- NOTE | 2019-08-24 10:37 | NUR ---
Left a voicemail message this AM for pt's [employer] worker Luís Stanley requesting a return call to discuss Luís transporting pt home. Await return call.
--- NOTE | 2019-08-24 11:48 | NUR ---
AM GROUP PT WAS PRESENT FOR MORNING GROUP THERAPY SITTING IN A COMFY CHAIR AT THE BACK OF THE ROOM. PT CHOSE NOT TO PARTICIPATE IN ANY ACTIVITY OFFERED. PT WAS QUIET AND EXPRESSED NO VISUAL HALLUCINATIONS WHILE IN GROUP.
--- NOTE | 2019-08-24 14:12 | NUR ---
Patient is discharging today. Met with pt prior to discharge. Pt states that he feels ready for discharge. Pt states that he is not feeling depressed nor does he feel anxious. Discussed follow-up appointments.
--- NOTE | 2019-08-24 14:13 | NUR ---
Patient discharged today to home. Follow-up appointments were scheduled with [facility] on 08/28/19 at 9:45, Srinivas Baker therapsit at [place] on 08/26/19 at 15:00, and with PCP Dr Nugent on 09/01/19 at 9:30. While at [facility], pt's depression lessend and pt's anxiety resolved. Pt tended to isolate even when in the activity room. Pt was pleasant and cooperative.
--- NOTE | 2019-08-24 14:18 | NUR ---
PT DISCHARGED OFF FLOOR AT THIS TIME VIA WHEELCHAIR, WITH FRIEND AND MENTAL HEALTH WORKER ESCORT. ALL BELONGINGS AND PAPERWORK SENT WITH PT AT THIS TIME.
== END 2019-08-24 14:18 | disposition home or self-care (01) | DRG 885 ==
LOC: 3N 01:54
PROVIDERS: Nurse Practitioner Women's Health; Registered Nurse; ADMIT Psychiatry & Neurology Psychiatry
DX: F20.0 Paranoid schizophrenia (principal); F33.2 Major depressive disorder, recurrent severe without psychotic features; R45.851 Suicidal ideations; K56.609 Unspecified intestinal obstruction, unspecified as to partial versus complete obstruction; F42.9 Obsessive-compulsive disorder, unspecified; F41.9 Anxiety disorder, unspecified; N32.81 Overactive bladder; E55.9 Vitamin D deficiency, unspecified; K21.9 Gastro-esophageal reflux disease without esophagitis; Z90.49 Acquired absence of other specified parts of digestive tract; Z88.8 Allergy status to other drugs, medicaments and biological substances

== ENCOUNTER → 2019-12-16 | Outpatient (CLI) | payer MEDICARE, MEDICAID ==
[~2019-12-16] MED LIST changes: +FLUVOXAMINE MA150 M1 PO; +HOMEMED PO; +KLONOPIN2 M1 PO; +OLANZAPINE5 MG PO; +OLANZAPINE7.5 M1 PO; +PAXIL20 M1 PO; +PROPRANOLOL HCL10 MG PO; +ROZEREM8 MG PO; +ZYPREXA15 M1 PO
[2019-12-16 15:13] LABS: CHOLESTEROL 178 mg/dL (<200); HDL CHOLESTEROL 45 mg/dl (40-60); LDL CHOLESTEROL 105 mg/dL (9-159); TRIGLYCERIDES 141 mg/dl (<150); VLDL CHOLESTEROL 28 mg/dL (6-40)
[2019-12-16 17:28] LABS: CLARITY CLEAR (CLEAR); COLOR YELLOW (YELLOW)
[2019-12-16 17:29] LABS: BILIRUBIN NEGATIVE (NEGATIVE); BLOOD NEGATIVE (NEGATIVE); GLUCOSE NEGATIVE (NEGATIVE); KETONE NEGATIVE (NEGATIVE); LEUKO ESTERASE NEGATIVE (NEGATIVE); NITRITE NEGATIVE (NEGATIVE); UROBILINOGEN 0.2 E.U./dl (0.2-1.0)
[2019-12-16 17:30] LABS: BACTERIA 1+; MUCOUS 2+
== END | disposition home or self-care (01) ==
LOC: LAB 13:47
PROVIDERS: Nurse Practitioner Primary Care
DX: N32.81 Overactive bladder (principal); K75.81 Nonalcoholic steatohepatitis (NASH); E78.5 Hyperlipidemia, unspecified; R20.2 Paresthesia of skin; Z79.899 Other long term (current) drug therapy

== ENCOUNTER → 2021-01-09 | Outpatient (CLI) | payer MEDICARE, MEDICAID | END | disposition home or self-care (01) | LOC: LAB 08:00 | PROVIDERS: ATTEND Nurse Practitioner Primary Care | DX: K92.1 Melena (principal) ==

== ENCOUNTER → 2021-01-10 | Outpatient (CLI) | payer MEDICARE, MEDICAID ==
[2021-01-10 09:49] LABS: BASO % 0.4 % (0.0-1.0); EOS # 0.2 10*3/uL (0.0-0.4); EOS % 3.7 % (1.0-4.0); HEMATOCRIT 40.9 % (42.0-52.0); MEAN CELL VOLUME 85.4 fl (80.0-94.0); MEAN CORPUSCULAR HGB 28.8 pg (27.0-31.0); MEAN CORPUSCULAR HGB CONC 33.7 g/dl (33.0-37.0); MEAN PLATELET VOLUME 8.9 fl (9.6-12.3); MONO # 0.3 10*3/uL (0.1-1.0); MONO % 6.8 % (3.0-9.0); NEUT % 44.9 % (47.0-73.0); PLATELET COUNT AUTOMATED 211 10*3/uL (130-400); RED BLOOD COUNT 4.79 10*6/uL (4.50-5.90); RED CELL DISTRI WIDTH 12.7 % (0-14.5); WHITE BLOOD COUNT 4.6 10*3/uL (4.8-10.8)
[2021-01-10 10:19] LABS: IRON 80 ug/dL (65-175); TOTAL IRON BINDING CAPACITY 310 ug/dl (250-450)
== END | disposition home or self-care (01) ==
LOC: LAB 09:14
PROVIDERS: ATTEND Nurse Practitioner Primary Care
DX: K92.1 Melena (principal); Z79.899 Other long term (current) drug therapy

== ENCOUNTER 2021-09-22 10:57 | Emergency (ER) | payer MEDICARE, MEDICAID ==
[~2021-09-22] VITALS: Ht 187.9 cm; Wt 81.6 kg
[2021-09-22 13:38] LABS: BASO % 0.7 % (0.0-1.0); EOS # 0.1 10*3/uL (0.0-0.4); EOS % 3.1 % (1.0-4.0); HEMATOCRIT 41.9 % (42.0-52.0); LYMPH # 1.5 10*3/uL (1.3-4.4); LYMPH % 32.4 % (27.0-41.0); MEAN CELL VOLUME 89.7 fl (80.0-94.0); MEAN CORPUSCULAR HGB 28.5 pg (27.0-31.0); MEAN CORPUSCULAR HGB CONC 31.7 g/dl (33.0-37.0); MEAN PLATELET VOLUME 9.6 fl (9.6-12.3); MONO # 0.3 10*3/uL (0.1-1.0); MONO % 6.9 % (3.0-9.0); NEUT # 2.5 10*3/uL (2.3-7.9); NEUT % 56.7 % (47.0-73.0); PLATELET COUNT AUTOMATED 175 10*3/uL (130-400); RED BLOOD COUNT 4.67 10*6/uL (4.50-5.90); RED CELL DISTRI WIDTH 12.9 % (0-14.5); WHITE BLOOD COUNT 4.5 10*3/uL (4.8-10.8)
[2021-09-22 13:55] LABS: ACT PARTIAL THROMBO TIME 27.9 SECONDS (20.0-32.1)
[2021-09-22 13:59] LABS: ALBUMIN 3.6 gm/dl (3.1-4.5); ALKALINE PHOSPHATASE 67 U/L (45-117); BUN 11 mg/dl (7-24); CHLORIDE 108 mmol/L (98-107); CREATININE 1.26 mg/dL (0.70-1.30); LIPASE 58 U/L (73-393); SGOT/AST 16 IU/L (3-35); SGPT/ALT 29 U/L (12-78); SODIUM 142 mmol/L (136-145); TOTAL PROTEIN 6.8 gm/dL (6.4-8.2)
[2021-09-22 14:26] LABS: BILIRUBIN Negative (Negative); BLOOD Negative (Negative); CLARITY Clear (Clear); COLOR Yellow (Yellow); GLUCOSE Negative (Negative); KETONE Negative (Negative); LEUKO ESTERASE Negative (Negative); NITRITE Negative (Negative); PH 6.5 (4.5-8.0); SPECIFIC GRAVITY 1.015 (1.001-1.030); UROBILINOGEN 0.2 E.U./dl (0.0-1.0)
[2021-09-22 14:33] LABS: RBC 0-2 rbc/hpf (0-2); WBC 0-2 wbc/hpf (0-5)
[2021-09-22 15:35] VITALS: BP 149/87
[2021-09-22] MEDS ORDERED: MECLIZINE HCL25 M2 PO (17:42)
== END 2021-09-22 17:30 | disposition home or self-care (01) ==
LOC: ED 10:57
PROVIDERS: Physician Assistant
DX: R42 Dizziness and giddiness (principal); Z20.822 Contact with and (suspected) exposure to COVID-19; R11.0 Nausea; Z88.8 Allergy status to other drugs, medicaments and biological substances; Z79.899 Other long term (current) drug therapy

== ENCOUNTER → 2021-09-27 | Outpatient (CLI) | payer MEDICARE, MEDICAID ==
[~2021-09-27] MED LIST changes: +MECLIZINE HCL25 M2 PO
[2021-09-27 15:52] LABS: BASO % 0.7 % (0.0-1.0); EOS # 0.1 10*3/uL (0.0-0.4); HEMATOCRIT 42.4 % (42.0-52.0); LYMPH # 1.3 10*3/uL (1.3-4.4); LYMPH % 28.4 % (27.0-41.0); MEAN CORPUSCULAR HGB 28.4 pg (27.0-31.0); MEAN CORPUSCULAR HGB CONC 32.3 g/dl (33.0-37.0); MEAN PLATELET VOLUME 9.7 fl (9.6-12.3); MONO # 0.3 10*3/uL (0.1-1.0); MONO % 6.7 % (3.0-9.0); NEUT # 2.8 10*3/uL (2.3-7.9); PLATELET COUNT AUTOMATED 190 10*3/uL (130-400); RED BLOOD COUNT 4.82 10*6/uL (4.50-5.90); RED CELL DISTRI WIDTH 12.6 % (0-14.5); WHITE BLOOD COUNT 4.5 10*3/uL (4.8-10.8)
[2021-09-27 16:15] LABS: ALBUMIN 3.9 gm/dl (3.1-4.5); ALKALINE PHOSPHATASE 69 U/L (45-117); BUN 10 mg/dl (7-24); CHLORIDE 106 mmol/L (98-107); CREATININE 1.21 mg/dL (0.70-1.30); POTASSIUM 3.9 mmol/L (3.5-5.1); SGOT/AST 16 IU/L (3-35); SGPT/ALT 30 U/L (12-78); SODIUM 141 mmol/L (136-145); TOTAL PROTEIN 7.3 gm/dL (6.4-8.2)
[2021-09-30 01:12] LABS: TESTOSTERONE FREE, (DIRECT) 6.2 pg/mL (6.6-18.1)
== END | disposition home or self-care (01) ==
LOC: LAB 15:29
PROVIDERS: ATTEND Urology
DX: Z12.5 Encounter for screening for malignant neoplasm of prostate (principal); D40.0 Neoplasm of uncertain behavior of prostate; R53.83 Other fatigue

== ENCOUNTER 2022-04-25 14:29 | Emergency (ER) | payer OTHER, MEDICAID ==
[~2022-04-25] VITALS: Ht 187.9 cm; Wt 83.5 kg
[2022-04-25 15:15] VITALS: BP 125/88
== END 2022-04-25 18:35 | disposition home or self-care (01) ==
LOC: ED 14:29
DX: S30.862A Insect bite (nonvenomous) of penis, initial encounter (principal); J02.9 Acute pharyngitis, unspecified; Z88.8 Allergy status to other drugs, medicaments and biological substances; Z79.899 Other long term (current) drug therapy; Z90.49 Acquired absence of other specified parts of digestive tract; W57.XXXA Bitten or stung by nonvenomous insect and other nonvenomous arthropods, initial encounter; Y93.89 Activity, other specified; Y92.89 Other specified places as the place of occurrence of the external cause; Y99.8 Other external cause status

== ENCOUNTER → 2022-08-06 | Outpatient (CLI) | payer OTHER, MEDICAID ==
[~2022-08-06] MED LIST changes: +CAPLYTA42 MG PO; +NEURONTIN100 MG PO; +VISTARIL25 MG PO
== END ==
LOC: CARD 00:49
PROVIDERS: ATTEND Nurse Practitioner Primary Care
DX: R07.9 Chest pain, unspecified (principal)

== ENCOUNTER → 2023-02-08 | Outpatient (CLI) | payer OTHER, MEDICAID ==
[2023-02-08 16:15] LABS: BASO % 0.5 % (0.0-1.0); EOS # 0.1 10*3/uL (0.0-0.4); EOS % 2.1 % (1.0-4.0); HEMATOCRIT 39.6 % (42.0-52.0); LYMPH # 1.4 10*3/uL (1.3-4.4); LYMPH % 25.1 % (27.0-41.0); MEAN CELL VOLUME 90.2 fl (80.0-94.0); MEAN CORPUSCULAR HGB 30.3 pg (27.0-31.0); MEAN CORPUSCULAR HGB CONC 33.6 g/dl (33.0-37.0); MEAN PLATELET VOLUME 9.8 fl (9.6-12.3); MONO # 0.4 10*3/uL (0.1-1.0); MONO % 6.1 % (3.0-9.0); NEUT # 3.8 10*3/uL (2.3-7.9); PLATELET COUNT AUTOMATED 171 10*3/uL (130-400); RED BLOOD COUNT 4.39 10*6/uL (4.50-5.90); RED CELL DISTRI WIDTH 13.1 % (0-14.5); WHITE BLOOD COUNT 5.7 10*3/uL (4.8-10.8)
[2023-02-08 16:31] LABS: ALKALINE PHOSPHATASE 63 U/L (46-116); BUN 13 mg/dl (9-23); CHLORIDE 104 mmol/L (98-107); SGPT/ALT 10 U/L (10-49); TOTAL PROTEIN 6.6 gm/dL (6.0-8.0)
== END | disposition home or self-care (01) ==
LOC: LAB 00:21 → US 00:21
PROVIDERS: ATTEND Urology
DX: N28.89 Other specified disorders of kidney and ureter (principal); D40.0 Neoplasm of uncertain behavior of prostate; N32.89 Other specified disorders of bladder; R53.83 Other fatigue; N52.9 Male erectile dysfunction, unspecified

== ENCOUNTER 2023-03-02 19:51 | Emergency (ER) | payer OTHER, MEDICAID ==
[2023-03-02] MEDS ORDERED: VIBRAMYCIN100 MG PO (20:13)
[2023-03-02 20:20] VITALS: BP 138/72
== END 2023-03-02 20:27 | disposition home or self-care (01) ==
LOC: ED 19:51
DX: S80.861A Insect bite (nonvenomous), right lower leg, initial encounter (principal); F41.9 Anxiety disorder, unspecified; F32.A Depression, unspecified; K21.9 Gastro-esophageal reflux disease without esophagitis; Z88.8 Allergy status to other drugs, medicaments and biological substances; Z90.49 Acquired absence of other specified parts of digestive tract; Z98.890 Other specified postprocedural states; W57.XXXA Bitten or stung by nonvenomous insect and other nonvenomous arthropods, initial encounter; Y93.89 Activity, other specified; Y92.009 Unspecified place in unspecified non-institutional (private) residence as the place of occurrence of the external cause; Y99.8 Other external cause status

== ENCOUNTER 2023-03-14 15:47 | Emergency (ER) | payer OTHER, MEDICAID ==
[~2023-03-14] VITALS: Ht 187.9 cm; Wt 83.5 kg
[~2023-03-14 15:47] MED LIST changes: +VIBRAMYCIN100 MG PO
[2023-03-14 16:19] VITALS: BP 136/82
[2023-03-14 16:52] LABS: BILIRUBIN Negative (Negative); BLOOD Negative (Negative); CLARITY Clear (Clear); COLOR Yellow (Yellow); GLUCOSE Negative (Negative); KETONE Negative (Negative); LEUKO ESTERASE Negative (Negative); NITRITE Negative (Negative); PH 6.5 (4.5-8.0)
[2023-03-14 16:59] LABS: BACTERIA TRACE; RBC 0-2 rbc/hpf (0-2); WBC 0-2 wbc/hpf (0-5)
[2023-03-14 17:30] LABS: BASO % 0.4 % (0.0-1.0); EOS # 0.1 10*3/uL (0.0-0.4); EOS % 1.4 % (1.0-4.0); HEMATOCRIT 40.8 % (42.0-52.0); LYMPH # 1.2 10*3/uL (1.3-4.4); MEAN CELL VOLUME 90.1 fl (80.0-94.0); MEAN CORPUSCULAR HGB 29.8 pg (27.0-31.0); MEAN CORPUSCULAR HGB CONC 33.1 g/dl (33.0-37.0); MEAN PLATELET VOLUME 10.2 fl (9.6-12.3); MONO # 0.4 10*3/uL (0.1-1.0); MONO % 8.1 % (3.0-9.0); NEUT # 3.2 10*3/uL (2.3-7.9); NEUT % 65.9 % (47.0-73.0); PLATELET COUNT AUTOMATED 176 10*3/uL (130-400); RED BLOOD COUNT 4.53 10*6/uL (4.50-5.90); RED CELL DISTRI WIDTH 12.7 % (0-14.5); WHITE BLOOD COUNT 4.8 10*3/uL (4.8-10.8)
[2023-03-14 17:57] LABS: ALKALINE PHOSPHATASE 61 U/L (46-116); BUN 10 mg/dl (9-23); CHLORIDE 103 mmol/L (98-107); POTASSIUM 3.7 mmol/L (3.4-5.1); SGPT/ALT 11 U/L (10-49); THYROID STIM HORMONE (HS) 2.772 uIU/ml (0.550-4.780); TOTAL PROTEIN 6.7 gm/dL (6.0-8.0)
== END 2023-03-14 18:08 | disposition home or self-care (01) ==
LOC: ED 15:47
PROVIDERS: Emergency Medicine
DX: R53.1 Weakness (principal); F41.9 Anxiety disorder, unspecified; F32.A Depression, unspecified; K21.9 Gastro-esophageal reflux disease without esophagitis; Z88.8 Allergy status to other drugs, medicaments and biological substances; Z90.49 Acquired absence of other specified parts of digestive tract; Z98.890 Other specified postprocedural states

== ENCOUNTER 2023-03-16 10:25 | Emergency (ER) | payer OTHER, MEDICAID ==
[~2023-03-16] VITALS: Ht 187.9 cm; Wt 83.5 kg
[2023-03-16 10:52] VITALS: BP 125/84
[2023-03-16 11:20] LABS: BASO % 0.5 % (0.0-1.0); EOS # 0.1 10*3/uL (0.0-0.4); HEMATOCRIT 39.5 % (42.0-52.0); LYMPH # 1.1 10*3/uL (1.3-4.4); LYMPH % 24.1 % (27.0-41.0); MEAN CELL VOLUME 90.2 fl (80.0-94.0); MEAN CORPUSCULAR HGB 30.1 pg (27.0-31.0); MEAN CORPUSCULAR HGB CONC 33.4 g/dl (33.0-37.0); MEAN PLATELET VOLUME 9.9 fl (9.6-12.3); MONO # 0.3 10*3/uL (0.1-1.0); MONO % 6.9 % (3.0-9.0); NEUT # 2.9 10*3/uL (2.3-7.9); NEUT % 65.5 % (47.0-73.0); PLATELET COUNT AUTOMATED 188 10*3/uL (130-400); RED BLOOD COUNT 4.38 10*6/uL (4.50-5.90); RED CELL DISTRI WIDTH 12.7 % (0-14.5); WHITE BLOOD COUNT 4.4 10*3/uL (4.8-10.8)
[2023-03-16 11:46] LABS: ALKALINE PHOSPHATASE 65 U/L (46-116); BUN 18 mg/dl (9-23); CHLORIDE 106 mmol/L (98-107); POTASSIUM 3.8 mmol/L (3.4-5.1); SGPT/ALT 11 U/L (10-49); THYROID STIM HORMONE (HS) 3.774 uIU/ml (0.550-4.780); TOTAL PROTEIN 6.6 gm/dL (6.0-8.0)
== END 2023-03-16 13:01 | disposition home or self-care (01) ==
LOC: ED 10:25
PROVIDERS: Emergency Medicine
DX: E86.0 Dehydration (principal); F41.9 Anxiety disorder, unspecified; R53.83 Other fatigue; F32.A Depression, unspecified; K21.9 Gastro-esophageal reflux disease without esophagitis; Z88.8 Allergy status to other drugs, medicaments and biological substances; Z90.49 Acquired absence of other specified parts of digestive tract; Z98.890 Other specified postprocedural states

== ENCOUNTER 2023-06-15 14:22 | Emergency (ER) | payer OTHER, MEDICAID ==
[~2023-06-15] VITALS: Ht 187.9 cm; Wt 77.1 kg
[2023-06-15 15:00] VITALS: BP 120/87
[2023-06-15] MEDS ORDERED: CLONAZEPAM1 MG PO (15:08)
[2023-06-15] MEDS ORDERED: LEVOTHYROXINE75 MCG PO (15:08)
[2023-06-15 15:26] LABS: BASO % 0.4 % (0.0-1.0); EOS # 0.1 10*3/uL (0.0-0.4); EOS % 2.2 % (1.0-4.0); HEMATOCRIT 42.1 % (42.0-52.0); LYMPH # 1.4 10*3/uL (1.3-4.4); LYMPH % 30.3 % (27.0-41.0); MEAN CELL VOLUME 89.6 fl (80.0-94.0); MEAN CORPUSCULAR HGB CONC 33.5 g/dl (33.0-37.0); MEAN PLATELET VOLUME 10.2 fl (9.6-12.3); MONO # 0.3 10*3/uL (0.1-1.0); MONO % 5.6 % (3.0-9.0); NEUT # 2.8 10*3/uL (2.3-7.9); NEUT % 61.3 % (47.0-73.0); PLATELET COUNT AUTOMATED 160 10*3/uL (130-400); RED CELL DISTRI WIDTH 12.5 % (0-14.5); WHITE BLOOD COUNT 4.6 10*3/uL (4.8-10.8)
[2023-06-15 15:58] LABS: ALKALINE PHOSPHATASE 62 U/L (46-116); BUN 15 mg/dl (9-23); CHLORIDE 107 mmol/L (98-107); POTASSIUM 3.7 mmol/L (3.4-5.1); SGPT/ALT 10 U/L (10-49); TOTAL PROTEIN 6.6 gm/dL (6.0-8.0)
== END 2023-06-15 16:33 | disposition home or self-care (01) ==
LOC: ED 14:22
PROVIDERS: Emergency Medicine
DX: R53.1 Weakness (principal); F41.9 Anxiety disorder, unspecified; F32.A Depression, unspecified; K21.9 Gastro-esophageal reflux disease without esophagitis; Z88.8 Allergy status to other drugs, medicaments and biological substances; Z90.49 Acquired absence of other specified parts of digestive tract; Z98.890 Other specified postprocedural states

== ENCOUNTER 2024-02-17 14:50 | Emergency (ER) | payer OTHER, MEDICAID ==
[~2024-02-17] VITALS: Ht 187.9 cm; Wt 86.2 kg
[~2024-02-17 14:50] MED LIST changes: +LEVOTHYROXINE75 MCG PO
[2024-02-17 15:06] VITALS: BP 124/85
[2024-02-17] MEDS ORDERED: Doxycycline Hyclate 100 MG CAP PO ONE ×2 (15:10)
== END 2024-02-17 15:45 | disposition home or self-care (01) ==
LOC: ED 14:50
DX: S00.06XA Insect bite (nonvenomous) of scalp, initial encounter (principal); Z98.890 Other specified postprocedural states; Z88.8 Allergy status to other drugs, medicaments and biological substances; W57.XXXA Bitten or stung by nonvenomous insect and other nonvenomous arthropods, initial encounter; Y93.89 Activity, other specified; Y92.89 Other specified places as the place of occurrence of the external cause; Y99.8 Other external cause status

== ENCOUNTER → 2024-06-30 | Outpatient (CLI) | payer OTHER, MEDICAID | END | disposition home or self-care (01) | LOC: US 14:00 | PROVIDERS: ATTEND Urology | DX: N28.89 Other specified disorders of kidney and ureter (principal) ==

== ENCOUNTER 2025-04-10 03:48 | Emergency (ER) | payer OTHER, MEDICAID ==
[~2025-04-10] VITALS: Ht 188 cm; Wt 81.6 kg
[2025-04-10 03:53] VITALS: BP 119/80
[2025-04-10] MEDS ORDERED: METHOCARBAMOL 750 MG TAB PO ONE (04:15)
[2025-04-10] MEDS ORDERED: SODIUM CHLORIDE 0.9% 1,000 ML IV ONE (04:15)
[2025-04-10 04:35] LABS: BASO % 0.5 % (0.0-1.0); EOS # 0.2 10*3/uL (0.0-0.4); EOS % 2.7 % (1.0-4.0); HEMATOCRIT 38.2 % (42.0-52.0); MEAN CELL VOLUME 89.3 fl (80.0-94.0); MEAN CORPUSCULAR HGB 29.9 pg (27.0-31.0); MEAN CORPUSCULAR HGB CONC 33.5 g/dl (33.0-37.0); MEAN PLATELET VOLUME 9.3 fl (9.6-12.3); MONO # 0.6 10*3/uL (0.1-1.0); MONO % 8.6 % (3.0-9.0); PLATELET COUNT AUTOMATED 169 10*3/uL (130-400); RED BLOOD COUNT 4.28 10*6/uL (4.50-5.90); RED CELL DISTRI WIDTH 12.8 % (0-14.5); WHITE BLOOD COUNT 6.4 10*3/uL (4.8-10.8)
[2025-04-10 04:58] LABS: ALKALINE PHOSPHATASE 56 U/L (46-116); BUN 19 mg/dl (9-23); CHLORIDE 106 mmol/L (98-107); CPK 60 U/L (34-171); POTASSIUM 3.5 mmol/L (3.4-5.1); SGPT/ALT 16 U/L (5-49); TOTAL PROTEIN 6.2 gm/dL (6.0-8.0)
[2025-04-10 06:22] LABS: BILIRUBIN Negative (Negative); BLOOD Negative (Negative); CLARITY Clear (Clear); COLOR Yellow (Yellow); GLUCOSE Negative (Negative); KETONE Negative (Negative); LEUKO ESTERASE Negative (Negative); NITRITE Negative (Negative); PH 5.5 (4.5-8.0); UROBILINOGEN 0.2 E.U./dl (0.0-1.0)
[2025-04-10] MEDS ORDERED: METHOCARBAMOL750 M1 PO (07:06)
[2025-04-10 07:07] LABS: BACTERIA TRACE; RBC 0-2 rbc/hpf (0-2); WBC 0-2 wbc/hpf (0-5)
== END 2025-04-10 07:40 | disposition home or self-care (01) ==
LOC: ED 03:48
PROVIDERS: Emergency Medicine
DX: S76.912A Strain of unspecified muscles, fascia and tendons at thigh level, left thigh, initial encounter (principal); S76.911A Strain of unspecified muscles, fascia and tendons at thigh level, right thigh, initial encounter; N17.9 Acute kidney failure, unspecified; R42 Dizziness and giddiness; K21.9 Gastro-esophageal reflux disease without esophagitis; F32.A Depression, unspecified; F41.9 Anxiety disorder, unspecified; Z79.899 Other long term (current) drug therapy; Z88.8 Allergy status to other drugs, medicaments and biological substances; Z90.49 Acquired absence of other specified parts of digestive tract; X58.XXXA Exposure to other specified factors, initial encounter; Y93.89 Activity, other specified; Y92.89 Other specified places as the place of occurrence of the external cause; Y99.8 Other external cause status